=== PATIENT | male | born 1965 | race Caucasian/White ===

== ENCOUNTER 2017-02-11 09:45 | Emergency (ER) | payer BC, MEDICAID ==
[~2017-02-11] VITALS: Ht 188 cm; Wt 145.4 kg
[~2017-02-11 09:45] MED LIST: ALBU8HFA4 IH; ASPI81 PO; BUPR-93 PO; CARV25 PO; DSS100 PO; FURO20 PO; LISI-662 PO; LURA40 PO; METF500T4 PO; OMEP20 PO
[2017-02-11] MEDS ORDERED: INSNOV SQ (09:59)
[2017-02-11] MEDS ORDERED: AMLO-511 PO (09:59)
[2017-02-11] MEDS ORDERED: SERT20OR6 PO (09:59)
[2017-02-11] MEDS ORDERED: LISI-662 PO (09:59)
[2017-02-11] MEDS ORDERED: LOVA20 PO (09:59)
[2017-02-11 10:22] VITALS: BP 148/84
[2017-02-11] MEDS ORDERED: OxyCODONE HCL/ACETAMINOPHEN 5-325 MG TABLET PO ONE (11:00)
== END 2017-02-11 11:49 | disposition home or self-care (01) ==
LOC: EMS 09:46
DX: E11.40 Type 2 diabetes mellitus with diabetic neuropathy, unspecified (principal); E78.00 Pure hypercholesterolemia, unspecified; I10 Essential (primary) hypertension; F17.210 Nicotine dependence, cigarettes, uncomplicated; F14.90 Cocaine use, unspecified, uncomplicated; F19.90 Other psychoactive substance use, unspecified, uncomplicated; Z79.4 Long term (current) use of insulin; Z79.82 Long term (current) use of aspirin
CPT/HCPCS: 82962; 99283

== ENCOUNTER 2017-02-13 09:12 | Emergency (ER) | payer BC ==
[~2017-02-13] VITALS: Ht 188 cm; Wt 145.4 kg
[~2017-02-13 09:12] MED LIST changes: +AMLO-511 PO; +INSNOV SQ; +LOVA20 PO; +SERT20OR6 PO
[2017-02-13] MEDS ORDERED: GABA-529 PO (09:32)
[2017-02-13 09:37] LABS: GLUCOSE,POINT OF CARE 109 MG/DL (70-110)
[2017-02-13] MEDS ORDERED: HYDROCODONE/ACETAMINOPHEN 10-325 MG TABLET PO ONE (11:00)
[2017-02-13] MEDS ORDERED: CloNIDine HCL 0.1 MG TABLET PO ONE (12:00)
[2017-02-13 12:32] VITALS: BP 152/89
== END 2017-02-13 12:48 | disposition home or self-care (01) ==
LOC: EMS 09:13
DX: S73.101A Unspecified sprain of right hip, initial encounter (principal); M79.661 Pain in right lower leg; M79.662 Pain in left lower leg; E11.9 Type 2 diabetes mellitus without complications; I10 Essential (primary) hypertension; E78.00 Pure hypercholesterolemia, unspecified; E03.9 Hypothyroidism, unspecified; F17.210 Nicotine dependence, cigarettes, uncomplicated; F14.90 Cocaine use, unspecified, uncomplicated; F15.90 Other stimulant use, unspecified, uncomplicated; Z79.4 Long term (current) use of insulin; X58.XXXA Exposure to other specified factors, initial encounter; Y93.89 Activity, other specified; Y92.89 Other specified places as the place of occurrence of the external cause; Y99.8 Other external cause status
CPT/HCPCS: 82962; 99283

== ENCOUNTER 2017-02-19 02:19 | Inpatient (IN) | payer BC, MEDICAID ==
[~2017-02-19] VITALS: Ht 188 cm; Wt 146.1 kg
[~2017-02-19 02:19] MED LIST changes: -BUPR-93 PO; -CARV25 PO; -DSS100 PO; +GABA-529 PO; -LURA40 PO; -OMEP20 PO; +SERT20OR5 PO; -SERT20OR6 PO
[2017-02-19 09:15] VITALS: BP 155/97
[2017-02-19] MEDS ORDERED: ZOLPIDEM TARTRATE 10 MG TABLET PO PRN (09:15)
[2017-02-19] MEDS ORDERED: HALOPERIDOL 5 MG TABLET PO PRN (09:15)
[2017-02-19 10:28] VITALS: BP 126/78
[2017-02-19 10:36] LABS: GLUCOSE,POINT OF CARE 169 MG/DL (70-110)
[2017-02-19] MEDS ORDERED: PNEUMOCOCCAL VACCINE POLYVALENT 0.5 ML VIAL [PPSV23] IM ONE (10:45)
[2017-02-19] MEDS ORDERED: INFLUENZA VIRUS VACCINE QVS 2016-17 (3YR+)/PF 60 MCG/0.5 ML SYRINGE IM ONE (10:45)
[2017-02-19] MEDS: LORazepam 2 MG TABLET PO PRN ×2 (11:51→18:35)
[2017-02-19] MEDS ORDERED: SERT50TA12 PO (14:04)
[2017-02-19] MEDS ORDERED: GLUCAGON,HUMAN RECOMBINANT 1 MG VIAL IM PRN (14:15)
[2017-02-19 16:13] VITALS: BP 142/85
[2017-02-19] MEDS: MetFORMIN HCL 500 MG TABLET PO SCH (17:17)
[2017-02-20] MEDS: ALBUTEROL SULFATE HFA 90 MCG/PUFF 8 GM INHALER IH PRN (01:51)
[2017-02-20 05:00] VITALS: BP 157/93
[2017-02-20] MEDS: LORazepam 2 MG TABLET PO PRN ×2 (05:02→08:44)
[2017-02-20 06:07] LABS: GLUCOSE,POINT OF CARE 108 MG/DL (70-110)
[2017-02-20 06:07] LABS: GLUCOSE,POINT OF CARE 114 MG/DL (70-110)
[2017-02-20 06:07] LABS: GLUCOSE,POINT OF CARE 114 MG/DL (70-110)
[2017-02-20 06:07] LABS: GLUCOSE,POINT OF CARE 106 MG/DL (70-110)
[2017-02-20] MEDS: MetFORMIN HCL 500 MG TABLET PO SCH ×2 (06:41→16:32)
[2017-02-20] MEDS: FUROSEMIDE 20 MG TABLET PO SCH (08:01)
[2017-02-20] MEDS: LISINOPRIL 20 MG TABLET PO SCH (08:01)
[2017-02-20] MEDS: SERTRALINE HCL 100 MG TABLET PO SCH (08:01)
[2017-02-20] MEDS: NICOTINE 21 MG/24 HOUR PATCH TD SCH (08:01)
[2017-02-20] MEDS: AmLODIPine BESYLATE 5 MG TABLET PO SCH (08:02)
[2017-02-20] MEDS: ASPIRIN 81 MG EC TABLET PO SCH (08:02)
[2017-02-20 08:44] VITALS: BP 144/76
[2017-02-20] MEDS ORDERED: MAGNESIUM HYDROXIDE SUSPENSION 30 ML UDCUP PO PRN (09:00)
[2017-02-20] MEDS ORDERED: NICOTINE 21 MG/24 HOUR PATCH TD SCH (09:00)
[2017-02-20] MEDS: DIAZEPAM 5 MG TABLET PO PRN ×2 (11:04→16:33)
[2017-02-20 11:33] LABS: GLUCOSE,POINT OF CARE 99 MG/DL (70-110)
[2017-02-20 14:16] LABS: GLUCOSE,POINT OF CARE 167 MG/DL (70-110)
[2017-02-20 16:00] VITALS: BP 145/89
[2017-02-20] MEDS: TRIAMCINOLONE 0.1% 15 GM OINTMENT TP SCH ×2 (16:32→16:38)
[2017-02-20] MEDS: LOVASTATIN 20 MG TABLET PO SCH (16:32)
[2017-02-20] MEDS: INSULIN ASPART 100 UNITS/ML SQ PRN (16:54)
[2017-02-20] MEDS: IBUPROFEN 600 MG TABLET PO PRN (17:17)
[2017-02-20 17:22] LABS: GLUCOSE,POINT OF CARE 166 MG/DL (70-110)
[2017-02-20] MEDS: FLUTICASONE PROPIONATE 50 MCG/SPRAY 16 GM NASAL SPRAY NASAL PRN (20:35)
[2017-02-20] MEDS: DIAZEPAM 10 MG TABLET PO PRN (20:39)
[2017-02-20 20:42] LABS: GLUCOSE,POINT OF CARE 74 MG/DL (70-110)
[2017-02-21 00:17] LABS: GLUCOSE,POINT OF CARE 81 MG/DL (70-110)
[2017-02-21 00:40] VITALS: BP 171/79
[2017-02-21] MEDS: DIAZEPAM 5 MG TABLET PO PRN ×3 (00:41→16:11)
[2017-02-21] MEDS: FLUTICASONE PROPIONATE 50 MCG/SPRAY 16 GM NASAL SPRAY NASAL PRN (02:06)
[2017-02-21] MEDS: ALBUTEROL SULFATE HFA 90 MCG/PUFF 8 GM INHALER IH PRN (02:09)
[2017-02-21 02:45] VITALS: BP 167/110
[2017-02-21 03:35] VITALS: BP 170/127
[2017-02-21] MEDS: CloNIDine HCL 0.1 MG TABLET PO PRN (03:41)
[2017-02-21 04:45] VITALS: BP 175/120
[2017-02-21] MEDS: MetFORMIN HCL 500 MG TABLET PO SCH ×2 (06:37→16:12)
[2017-02-21 09:49] VITALS: BP 150/96
[2017-02-21] MEDS: NICOTINE 21 MG/24 HOUR PATCH TD SCH (09:51)
[2017-02-21] MEDS: ASPIRIN 81 MG EC TABLET PO SCH (09:51)
[2017-02-21] MEDS: SERTRALINE HCL 100 MG TABLET PO SCH (09:51)
[2017-02-21] MEDS: AmLODIPine BESYLATE 5 MG TABLET PO SCH (09:51)
[2017-02-21] MEDS: FUROSEMIDE 20 MG TABLET PO SCH (09:53)
[2017-02-21] MEDS: LISINOPRIL 20 MG TABLET PO SCH (09:53)
[2017-02-21] MEDS: TRIAMCINOLONE 0.1% 15 GM OINTMENT TP SCH ×2 (09:56→16:12)
[2017-02-21] MEDS: GuaiFENesin/D-METHORPHAN/PHENYLEPH 5 ML LIQUID ORAL.SYG PO PRN ×3 (10:34→23:18)
[2017-02-21 11:22] LABS: GLUCOSE,POINT OF CARE 121 MG/DL (70-110)
[2017-02-21] MEDS ORDERED: GuaiFENesin/D-METHORPHAN/PHENYLEPH 5 ML LIQUID ORAL.SYG PO SCH (12:00)
[2017-02-21 16:00] VITALS: BP 136/88
[2017-02-21] MEDS: LOVASTATIN 20 MG TABLET PO SCH (16:12)
[2017-02-21] MEDS: DIAZEPAM 10 MG TABLET PO PRN (20:17)
[2017-02-21 20:22] LABS: GLUCOSE,POINT OF CARE 128 MG/DL (70-110)
[2017-02-21 20:22] LABS: GLUCOSE,POINT OF CARE 134 MG/DL (70-110)
[2017-02-22 01:42] VITALS: BP 174/101
[2017-02-22] MEDS: DIAZEPAM 5 MG TABLET PO PRN ×3 (01:44→17:18)
[2017-02-22] MEDS: FLUTICASONE PROPIONATE 50 MCG/SPRAY 16 GM NASAL SPRAY NASAL PRN ×2 (04:59→10:25)
[2017-02-22] MEDS: MetFORMIN HCL 500 MG TABLET PO SCH ×2 (06:17→16:30)
[2017-02-22 06:32] LABS: GLUCOSE,POINT OF CARE 97 MG/DL (70-110)
[2017-02-22 08:04] VITALS: BP 137/83
[2017-02-22 08:09] LABS: BASOPHILS % (AUTO) 0.5 % (0.0-2.0); EOSINOPHILS % (AUTO) 2.9 % (1.0-6.0); HEMATOCRIT 49.8 % (41-53); HEMOGLOBIN 15.9 g/dL (13.5-17.5); LYMPHOCYTES # (AUTO) 1.3 K/uL (1.0-4.8); LYMPHOCYTES % (AUTO) 16.1 % (22.0-44.0); MEAN CORPUSCULAR HEMOGLOBIN 28.4 pg (26.0-34.0); MEAN CORPUSCULAR HGB CONC 31.8 G/dL (31.0-37.0); MEAN CORPUSCULAR VOLUME 89 fL (80-100); MONOCYTES # (AUTO) 0.7 K/uL (0.1-1.0); MONOCYTES % (AUTO) 8.7 % (2.0-9.0); NEUTROPHILS # (AUTO) 5.9 K/uL (1.8-7.7); NEUTROPHILS % (AUTO) 71.8 % (40.0-70.0); PLATELET COUNT (AUTO) 244 K/uL (150-450); RED BLOOD CELL COUNT(AUTO) 5.58 MIL/uL (4.50-5.90); RED CELL DISTRIBUTION WIDTH 14.2 % (11.5-14.5); WHITE BLOOD COUNT (AUTO) 8.3 K/uL (4.5-11.0)
[2017-02-22 08:27] LABS: ALANINE AMINOTRANSFERASE 34 U/L (12-78); ALBUMIN 3.4 g/dL (3.4-5.0); ANION GAP 9 mmol/L (8-16); ASPARTATE AMINOTRANSFERASE 15 U/L (15-37); BILIRUBIN,TOTAL 0.3 mg/dL (0.1-1.0); CALCIUM, TOTAL 8.5 mg/dL (8.8-10.5); CARBON DIOXIDE 30 mmol/L (22-29); CHLORIDE 105 mmol/L (98-107); CHOL/HDL RATIO 2.4 (4.2-7.3); CREATININE 0.77 mg/dL (0.60-1.30); GLOMERULAR FILTR. RATE CALC > 60 mL/min (>60); PHOSPHORUS 3.9 mg/dL (2.5-4.9); POTASSIUM 4.6 mmol/L (3.5-5.1); SODIUM SERUM 144 mmol/L (136-145); THYROID STIMULATING HORMONE 2.55 uIU/mL (0.36-3.74); TOTAL PROTEIN, SERUM 6.9 g/dL (6.4-8.2); UREA NITROGEN, BLOOD 16 mg/dL (7-18)
[2017-02-22] MEDS: NICOTINE 21 MG/24 HOUR PATCH TD SCH (09:00)
[2017-02-22] MEDS: TRIAMCINOLONE 0.1% 15 GM OINTMENT TP SCH ×2 (09:11→16:35)
[2017-02-22] MEDS: AmLODIPine BESYLATE 5 MG TABLET PO SCH (09:12)
[2017-02-22] MEDS: SERTRALINE HCL 100 MG TABLET PO SCH (09:12)
[2017-02-22] MEDS: ASPIRIN 81 MG EC TABLET PO SCH (09:13)
[2017-02-22] MEDS: LISINOPRIL 20 MG TABLET PO SCH (09:13)
[2017-02-22] MEDS: FUROSEMIDE 20 MG TABLET PO SCH (09:13)
[2017-02-22] MEDS: IBUPROFEN 600 MG TABLET PO PRN (09:14)
[2017-02-22] MEDS: GuaiFENesin/D-METHORPHAN/PHENYLEPH 5 ML LIQUID ORAL.SYG PO PRN ×2 (10:26→18:38)
[2017-02-22 11:12] LABS: GLUCOSE,POINT OF CARE 101 MG/DL (70-110)
[2017-02-22] MEDS: LOVASTATIN 20 MG TABLET PO SCH (16:31)
[2017-02-22] MEDS: INSULIN ASPART 100 UNITS/ML SQ PRN (16:43)
[2017-02-22 16:47] LABS: GLUCOSE,POINT OF CARE 141 MG/DL (70-110)
[2017-02-22 20:54] VITALS: BP 136/86
[2017-02-22 21:02] LABS: GLUCOSE,POINT OF CARE 119 MG/DL (70-110)
[2017-02-23] MEDS: GuaiFENesin/D-METHORPHAN/PHENYLEPH 5 ML LIQUID ORAL.SYG PO PRN (00:46)
[2017-02-23] MEDS: DIAZEPAM 5 MG TABLET PO PRN ×2 (01:44→12:19)
[2017-02-23] MEDS: ACETAMINOPHEN 325 MG TABLET PO PRN ×2 (05:59→17:13)
[2017-02-23 06:27] LABS: GLUCOSE,POINT OF CARE 102 MG/DL (70-110)
[2017-02-23 06:48] VITALS: BP 158/102
[2017-02-23] MEDS: MetFORMIN HCL 500 MG TABLET PO SCH ×2 (06:59→17:03)
[2017-02-23 08:16] VITALS: BP 141/72
[2017-02-23] MEDS: AmLODIPine BESYLATE 5 MG TABLET PO SCH (08:25)
[2017-02-23] MEDS: ASPIRIN 81 MG EC TABLET PO SCH (08:25)
[2017-02-23] MEDS: SERTRALINE HCL 100 MG TABLET PO SCH (08:25)
[2017-02-23] MEDS: FUROSEMIDE 20 MG TABLET PO SCH (08:25)
[2017-02-23] MEDS: CHOLECALCIFEROL (VIT D3) 1,000 UNITS TABLET PO SCH (08:25)
[2017-02-23] MEDS: LISINOPRIL 20 MG TABLET PO SCH (08:25)
[2017-02-23] MEDS: NICOTINE 21 MG/24 HOUR PATCH TD SCH (08:26)
[2017-02-23] MEDS: TRIAMCINOLONE 0.1% 15 GM OINTMENT TP SCH ×2 (08:27→17:05)
[2017-02-23 11:12] LABS: GLUCOSE,POINT OF CARE 78 MG/DL (70-110)
[2017-02-23] MEDS: FLUTICASONE PROPIONATE 50 MCG/SPRAY 16 GM NASAL SPRAY NASAL PRN (12:19)
[2017-02-23 16:11] VITALS: BP 145/111
[2017-02-23] MEDS: CloNIDine HCL 0.1 MG TABLET PO PRN (16:11)
[2017-02-23 17:02] LABS: GLUCOSE,POINT OF CARE 123 MG/DL (70-110)
[2017-02-23] MEDS: LOVASTATIN 20 MG TABLET PO SCH (17:03)
[2017-02-23 17:13] VITALS: BP 112/62
[2017-02-23 21:07] LABS: GLUCOSE,POINT OF CARE 115 MG/DL (70-110)
[2017-02-24] MEDS: FLUTICASONE PROPIONATE 50 MCG/SPRAY 16 GM NASAL SPRAY NASAL PRN (00:26)
[2017-02-24] MEDS: DIAZEPAM 5 MG TABLET PO PRN ×3 (00:26→15:54)
[2017-02-24] MEDS: GuaiFENesin/D-METHORPHAN/PHENYLEPH 5 ML LIQUID ORAL.SYG PO PRN ×2 (00:26→10:22)
[2017-02-24 06:18] LABS: GLUCOSE,POINT OF CARE 96 MG/DL (70-110)
[2017-02-24] MEDS: MetFORMIN HCL 500 MG TABLET PO SCH ×2 (06:38→17:09)
[2017-02-24 06:41] VITALS: BP 144/92
[2017-02-24 08:43] VITALS: BP 125/67
[2017-02-24] MEDS: CHOLECALCIFEROL (VIT D3) 1,000 UNITS TABLET PO SCH (09:00)
[2017-02-24] MEDS: FUROSEMIDE 20 MG TABLET PO SCH (09:00)
[2017-02-24] MEDS: SERTRALINE HCL 100 MG TABLET PO SCH (09:01)
[2017-02-24] MEDS: AmLODIPine BESYLATE 5 MG TABLET PO SCH (09:01)
[2017-02-24] MEDS: NICOTINE 21 MG/24 HOUR PATCH TD SCH (09:01)
[2017-02-24] MEDS: LISINOPRIL 20 MG TABLET PO SCH (09:01)
[2017-02-24] MEDS: ASPIRIN 81 MG EC TABLET PO SCH (09:02)
[2017-02-24] MEDS: TRIAMCINOLONE 0.1% 15 GM OINTMENT TP SCH ×2 (09:03→17:10)
[2017-02-24 09:34] VITALS: BP 127/73
[2017-02-24 10:22] VITALS: BP 120/70
[2017-02-24] MEDS: IBUPROFEN 600 MG TABLET PO PRN (10:22)
[2017-02-24 11:02] LABS: GLUCOSE,POINT OF CARE 131 MG/DL (70-110)
[2017-02-24 16:05] VITALS: BP 138/90
[2017-02-24] MEDS: ACETAMINOPHEN 325 MG TABLET PO PRN (16:05)
[2017-02-24 16:42] LABS: GLUCOSE,POINT OF CARE 112 MG/DL (70-110)
[2017-02-24] MEDS: LOVASTATIN 20 MG TABLET PO SCH (17:09)
[2017-02-24 20:57] LABS: GLUCOSE,POINT OF CARE 110 MG/DL (70-110)
[2017-02-25 00:58] VITALS: BP 131/92
[2017-02-25] MEDS: DIAZEPAM 5 MG TABLET PO PRN ×3 (01:05→18:44)
[2017-02-25] MEDS: FLUTICASONE PROPIONATE 50 MCG/SPRAY 16 GM NASAL SPRAY NASAL PRN (01:06)
[2017-02-25] MEDS: GuaiFENesin/D-METHORPHAN/PHENYLEPH 5 ML LIQUID ORAL.SYG PO PRN ×2 (01:06→16:47)
[2017-02-25 05:36] LABS: GLUCOSE,POINT OF CARE 83 MG/DL (70-110)
[2017-02-25] MEDS: MetFORMIN HCL 500 MG TABLET PO SCH ×2 (06:38→16:35)
[2017-02-25 08:04] VITALS: BP 130/84
[2017-02-25] MEDS: SERTRALINE HCL 100 MG TABLET PO SCH (08:40)
[2017-02-25] MEDS: AmLODIPine BESYLATE 5 MG TABLET PO SCH (08:40)
[2017-02-25] MEDS: CHOLECALCIFEROL (VIT D3) 1,000 UNITS TABLET PO SCH (08:40)
[2017-02-25] MEDS: NICOTINE 21 MG/24 HOUR PATCH TD SCH (08:40)
[2017-02-25] MEDS: LISINOPRIL 20 MG TABLET PO SCH (08:40)
[2017-02-25] MEDS: FUROSEMIDE 20 MG TABLET PO SCH (08:40)
[2017-02-25] MEDS: TRIAMCINOLONE 0.1% 15 GM OINTMENT TP SCH ×2 (08:41→16:41)
[2017-02-25] MEDS: ASPIRIN 81 MG EC TABLET PO SCH (08:41)
[2017-02-25 11:12] LABS: GLUCOSE,POINT OF CARE 86 MG/DL (70-110)
[2017-02-25 16:35] VITALS: BP 157/96
[2017-02-25] MEDS: LOVASTATIN 20 MG TABLET PO SCH (16:36)
[2017-02-25 17:07] LABS: GLUCOSE COMMENT 1 Received Meds; GLUCOSE,POINT OF CARE 93 MG/DL (70-110)
[2017-02-25 19:44] VITALS: BP 139/74
[2017-02-25] MEDS: IBUPROFEN 600 MG TABLET PO PRN (19:48)
[2017-02-25 20:11] LABS: GLUCOSE,POINT OF CARE 96 MG/DL (70-110)
[2017-02-26 06:00] VITALS: BP 135/95
[2017-02-26] MEDS: DIAZEPAM 5 MG TABLET PO PRN (06:13)
[2017-02-26] MEDS: GuaiFENesin/D-METHORPHAN/PHENYLEPH 5 ML LIQUID ORAL.SYG PO PRN (06:13)
[2017-02-26] MEDS: MetFORMIN HCL 500 MG TABLET PO SCH (07:08)
[2017-02-26 07:13] LABS: GLUCOSE,POINT OF CARE 102 MG/DL (70-110)
[2017-02-26 08:04] VITALS: BP 137/80
[2017-02-26] MEDS: AmLODIPine BESYLATE 5 MG TABLET PO SCH (08:49)
[2017-02-26] MEDS: SERTRALINE HCL 100 MG TABLET PO SCH (08:49)
[2017-02-26] MEDS: FUROSEMIDE 20 MG TABLET PO SCH (08:49)
[2017-02-26] MEDS: CHOLECALCIFEROL (VIT D3) 1,000 UNITS TABLET PO SCH (08:49)
[2017-02-26] MEDS: NICOTINE 21 MG/24 HOUR PATCH TD SCH (08:49)
[2017-02-26] MEDS: TRIAMCINOLONE 0.1% 15 GM OINTMENT TP SCH (08:49)
[2017-02-26] MEDS: ASPIRIN 81 MG EC TABLET PO SCH (08:49)
[2017-02-26] MEDS: LISINOPRIL 20 MG TABLET PO SCH (08:49)
[2017-02-26 10:52] LABS: GLUCOSE,POINT OF CARE 98 MG/DL (70-110)
[2017-02-26] MEDS ORDERED: VITAD1000 PO (15:30)
== END 2017-02-26 15:20 | disposition home or self-care (01) | DRG 751 ==
LOC: B2S 09:04 → EDSTATUS 09:27
DX: F33.2 Major depressive disorder, recurrent severe without psychotic features (principal); I11.0 Hypertensive heart disease with heart failure; I50.9 Heart failure, unspecified; R45.851 Suicidal ideations; E11.65 Type 2 diabetes mellitus with hyperglycemia; E66.01 Morbid (severe) obesity due to excess calories; K21.9 Gastro-esophageal reflux disease without esophagitis; J44.9 Chronic obstructive pulmonary disease, unspecified; I87.2 Venous insufficiency (chronic) (peripheral); Z53.29 Procedure and treatment not carried out because of patient's decision for other reasons; M19.90 Unspecified osteoarthritis, unspecified site; Z83.3 Family history of diabetes mellitus; Z82.49 Family history of ischemic heart disease and other diseases of the circulatory system; Z68.41 Body mass index [BMI] 40.0-44.9, adult; Z59.0 Homelessness; Z79.82 Long term (current) use of aspirin; Z79.4 Long term (current) use of insulin; Z79.899 Other long term (current) drug therapy; Z91.5 Personal history of self-harm; Z28.21 Immunization not carried out because of patient refusal
CPT/HCPCS: 82306; 82962; 83735; 84100; 84443; 87081; J3535

== ENCOUNTER 2017-03-26 19:38 | Inpatient (IN) | payer MEDICAID ==
[~2017-03-26] VITALS: Ht 188 cm; Wt 141.3 kg
[~2017-03-26 19:38] MED LIST changes: -GABA-529 PO; -INSNOV SQ; -SERT20OR5 PO; +SERT50TA12 PO; +VITAD1000 PO
[2017-03-26 21:14] VITALS: BP 134/76
[2017-03-26] MEDS ORDERED: LORazepam 2 MG TABLET PO PRN (21:30)
[2017-03-26] MEDS ORDERED: HALOPERIDOL 5 MG TABLET PO PRN (21:30)
[2017-03-26] MEDS ORDERED: PNEUMOCOCCAL VACCINE POLYVALENT 0.5 ML VIAL [PPSV23] IM ONE (22:00)
[2017-03-26 22:06] VITALS: BP 128/80
[2017-03-26 22:42] LABS: GLUCOSE,POINT OF CARE 144 MG/DL (70-110)
[2017-03-27 01:53] VITALS: BP 125/73
[2017-03-27 01:55] VITALS: BP 125/73
[2017-03-27 06:33] VITALS: BP 140/80
[2017-03-27 06:57] LABS: GLUCOSE,POINT OF CARE 125 MG/DL (70-110)
[2017-03-27 07:41] LABS: BASOPHILS % (AUTO) 0.7 % (0.0-2.0); HEMATOCRIT 44.4 % (41-53); HEMOGLOBIN 14.2 g/dL (13.5-17.5); LYMPHOCYTES # (AUTO) 1.5 K/uL (1.0-4.8); LYMPHOCYTES % (AUTO) 34.7 % (22.0-44.0); MEAN CORPUSCULAR HEMOGLOBIN 28.9 pg (26.0-34.0); MEAN CORPUSCULAR HGB CONC 32.1 G/dL (31.0-37.0); MEAN CORPUSCULAR VOLUME 90 fL (80-100); MONOCYTES # (AUTO) 0.4 K/uL (0.1-1.0); MONOCYTES % (AUTO) 9.1 % (2.0-9.0); NEUTROPHILS # (AUTO) 2.2 K/uL (1.8-7.7); NEUTROPHILS % (AUTO) 50.5 % (40.0-70.0); PLATELET COUNT (AUTO) 253 K/uL (150-450); RED BLOOD CELL COUNT(AUTO) 4.94 MIL/uL (4.50-5.90); RED CELL DISTRIBUTION WIDTH 13.8 % (11.5-14.5); WHITE BLOOD COUNT (AUTO) 4.3 K/uL (4.5-11.0)
[2017-03-27] MEDS ORDERED: CloNIDine HCL 0.1 MG TABLET PO PRN (07:45)
[2017-03-27] MEDS ORDERED: GLUCAGON,HUMAN RECOMBINANT 1 MG VIAL IM PRN (07:45)
[2017-03-27] MEDS ORDERED: ACETAMINOPHEN 325 MG TABLET PO PRN (07:45)
[2017-03-27] MEDS ORDERED: PETROLATUM,WHITE 71 GM JELLY TP PRN (07:45)
[2017-03-27] MEDS ORDERED: MAG HYDROX/AL HYDROX/SIMETH ES 30 ML SUSPENSION UDCUP PO PRN (07:45)
[2017-03-27] MEDS ORDERED: TraMADol HCL 50 MG TABLET PO PRN (07:45)
[2017-03-27] MEDS ORDERED: LOPERAMIDE HCL 2 MG CAPSULE PO PRN (07:45)
[2017-03-27] MEDS ORDERED: ONDANSETRON HCL 4 MG TABLET PO PRN (07:45)
[2017-03-27] MEDS ORDERED: ALBUTEROL SULFATE HFA 90 MCG/PUFF 8 GM INHALER IH PRN (07:45)
[2017-03-27] MEDS ORDERED: BENZOCAINE/MENTHOL LOZENGE MM PRN (07:45)
[2017-03-27] MEDS ORDERED: MAGNESIUM HYDROXIDE SUSPENSION 30 ML UDCUP PO PRN (07:45)
[2017-03-27] MEDS ORDERED: BACITRACIN 28.4 GM OINTMENT TP PRN (07:45)
[2017-03-27] MEDS ORDERED: IBUPROFEN 600 MG TABLET PO PRN (07:45)
[2017-03-27 08:00] VITALS: BP 128/65
[2017-03-27] MEDS: MAGNESIUM SULFATE 454 GM BOX TP SCH (09:00)
[2017-03-27] MEDS: TERBINAFINE HCL 1% 30 GM CREAM TP SCH ×2 (09:00→17:04)
[2017-03-27] MEDS: AmLODIPine BESYLATE 5 MG TABLET PO SCH (09:02)
[2017-03-27] MEDS: DOCUSATE SODIUM 250 MG CAPSULE PO SCH ×2 (09:02→16:58)
[2017-03-27] MEDS: GABAPENTIN 300 MG CAPSULE PO SCH ×3 (09:02→16:58)
[2017-03-27] MEDS: FUROSEMIDE 20 MG TABLET PO SCH (09:03)
[2017-03-27] MEDS: LISINOPRIL 20 MG TABLET PO SCH (09:03)
[2017-03-27] MEDS: ASPIRIN 81 MG CHEWABLE TABLET PO SCH (09:03)
[2017-03-27] MEDS: CHOLECALCIFEROL (VIT D3) 1,000 UNITS TABLET PO SCH (09:03)
[2017-03-27] MEDS: SERTRALINE HCL 100 MG TABLET PO SCH (09:03)
[2017-03-27] MEDS: OMEPRAZOLE 20 MG CAPSULE PO SCH (09:03)
[2017-03-27 10:34] LABS: ALANINE AMINOTRANSFERASE 35 U/L (12-78); ALBUMIN 2.9 g/dL (3.4-5.0); ANION GAP 10 mmol/L (8-16); ASPARTATE AMINOTRANSFERASE 24 U/L (15-37); BILIRUBIN,TOTAL 0.2 mg/dL (0.1-1.0); CALCIUM, TOTAL 8.7 mg/dL (8.8-10.5); CARBON DIOXIDE 28 mmol/L (22-29); CHLORIDE 106 mmol/L (98-107); CREATININE 0.88 mg/dL (0.60-1.30); GLOMERULAR FILTR. RATE CALC > 60 mL/min (>60); POTASSIUM 4.6 mmol/L (3.5-5.1); SODIUM SERUM 144 mmol/L (136-145); TOTAL PROTEIN, SERUM 5.8 g/dL (6.4-8.2); UREA NITROGEN, BLOOD 18 mg/dL (7-18)
[2017-03-27 11:47] LABS: GLUCOSE,POINT OF CARE 122 MG/DL (70-110)
[2017-03-27] MEDS: NICOTINE 21 MG/24 HOUR PATCH TD SCH (12:08)
[2017-03-27 16:00] VITALS: BP 134/83
[2017-03-27] MEDS: MetFORMIN HCL 500 MG TABLET PO SCH (16:58)
[2017-03-27] MEDS: DIAZEPAM 5 MG TABLET PO PRN (17:06)
[2017-03-27 17:32] LABS: GLUCOSE,POINT OF CARE 112 MG/DL (70-110)
[2017-03-28 00:33] VITALS: BP 134/93
[2017-03-28] MEDS: DIAZEPAM 5 MG TABLET PO PRN ×3 (03:28→17:21)
[2017-03-28 06:12] LABS: GLUCOSE,POINT OF CARE 93 MG/DL (70-110)
[2017-03-28] MEDS: MetFORMIN HCL 500 MG TABLET PO SCH ×2 (06:42→16:45)
[2017-03-28 08:15] VITALS: BP 139/72
[2017-03-28] MEDS: MAGNESIUM SULFATE 454 GM BOX TP SCH (09:00)
[2017-03-28] MEDS: ASPIRIN 81 MG CHEWABLE TABLET PO SCH (09:05)
[2017-03-28] MEDS: CHOLECALCIFEROL (VIT D3) 1,000 UNITS TABLET PO SCH (09:05)
[2017-03-28] MEDS: OMEPRAZOLE 20 MG CAPSULE PO SCH (09:05)
[2017-03-28] MEDS: LISINOPRIL 20 MG TABLET PO SCH (09:05)
[2017-03-28] MEDS: DOCUSATE SODIUM 250 MG CAPSULE PO SCH ×2 (09:05→16:45)
[2017-03-28] MEDS: FUROSEMIDE 20 MG TABLET PO SCH (09:05)
[2017-03-28] MEDS: SERTRALINE HCL 100 MG TABLET PO SCH (09:05)
[2017-03-28] MEDS: AmLODIPine BESYLATE 5 MG TABLET PO SCH (09:05)
[2017-03-28] MEDS: GABAPENTIN 300 MG CAPSULE PO SCH ×3 (09:05→16:46)
[2017-03-28] MEDS: NICOTINE 21 MG/24 HOUR PATCH TD SCH (09:12)
[2017-03-28] MEDS: TERBINAFINE HCL 1% 30 GM CREAM TP SCH ×2 (09:13→16:46)
[2017-03-28 16:12] LABS: GLUCOSE COMMENT 1 Received Meds; GLUCOSE,POINT OF CARE 102 MG/DL (70-110)
[2017-03-28 16:12] LABS: GLUCOSE,POINT OF CARE 111 MG/DL (70-110)
[2017-03-28 16:18] VITALS: BP 136/87
[2017-03-28 20:17] LABS: GLUCOSE,POINT OF CARE 129 MG/DL (70-110)
[2017-03-29 00:39] VITALS: BP 137/73
[2017-03-29 06:13] LABS: GLUCOSE,POINT OF CARE 106 MG/DL (70-110)
[2017-03-29] MEDS: MetFORMIN HCL 500 MG TABLET PO SCH ×2 (07:03→16:08)
[2017-03-29 08:13] VITALS: BP 162/94
[2017-03-29] MEDS: DOCUSATE SODIUM 250 MG CAPSULE PO SCH ×2 (09:24→16:08)
[2017-03-29] MEDS: NICOTINE 21 MG/24 HOUR PATCH TD SCH (09:24)
[2017-03-29] MEDS: OMEPRAZOLE 20 MG CAPSULE PO SCH (09:24)
[2017-03-29] MEDS: SERTRALINE HCL 100 MG TABLET PO SCH (09:24)
[2017-03-29] MEDS: ASPIRIN 81 MG CHEWABLE TABLET PO SCH (09:25)
[2017-03-29] MEDS: CHOLECALCIFEROL (VIT D3) 1,000 UNITS TABLET PO SCH (09:25)
[2017-03-29] MEDS: LISINOPRIL 20 MG TABLET PO SCH (09:25)
[2017-03-29] MEDS: GABAPENTIN 300 MG CAPSULE PO SCH ×3 (09:25→16:08)
[2017-03-29] MEDS: AmLODIPine BESYLATE 5 MG TABLET PO SCH (09:25)
[2017-03-29] MEDS: FUROSEMIDE 20 MG TABLET PO SCH (09:26)
[2017-03-29] MEDS: TERBINAFINE HCL 1% 30 GM CREAM TP SCH ×2 (09:27→16:08)
[2017-03-29] MEDS: MAGNESIUM SULFATE 454 GM BOX TP SCH (09:27)
[2017-03-29] MEDS: DIAZEPAM 5 MG TABLET PO PRN ×2 (09:31→18:37)
[2017-03-29 12:17] LABS: GLUCOSE,POINT OF CARE 70 MG/DL (70-110)
[2017-03-29 15:17] LABS: GLUCOSE,POINT OF CARE 196 MG/DL (70-110)
[2017-03-29 16:12] LABS: GLUCOSE,POINT OF CARE 130 MG/DL (70-110)
[2017-03-29 16:15] VITALS: BP 144/81
[2017-03-29] MEDS: DIAZEPAM 10 MG TABLET PO PRN (21:23)
[2017-03-30 00:35] VITALS: BP 148/89
[2017-03-30 01:37] LABS: GLUCOSE,POINT OF CARE 79 MG/DL (70-110)
[2017-03-30] MEDS: MetFORMIN HCL 500 MG TABLET PO SCH ×2 (06:46→17:18)
[2017-03-30] MEDS: CHOLECALCIFEROL (VIT D3) 1,000 UNITS TABLET PO SCH (09:01)
[2017-03-30] MEDS: NICOTINE 21 MG/24 HOUR PATCH TD SCH (09:01)
[2017-03-30] MEDS: AmLODIPine BESYLATE 5 MG TABLET PO SCH (09:01)
[2017-03-30] MEDS: GABAPENTIN 300 MG CAPSULE PO SCH ×3 (09:01→16:03)
[2017-03-30] MEDS: ASPIRIN 81 MG CHEWABLE TABLET PO SCH (09:01)
[2017-03-30] MEDS: FUROSEMIDE 20 MG TABLET PO SCH ×2 (09:01→17:33)
[2017-03-30] MEDS: LISINOPRIL 20 MG TABLET PO SCH (09:01)
[2017-03-30] MEDS: DOCUSATE SODIUM 250 MG CAPSULE PO SCH ×2 (09:01→16:03)
[2017-03-30] MEDS: SERTRALINE HCL 100 MG TABLET PO SCH (09:01)
[2017-03-30] MEDS: OMEPRAZOLE 20 MG CAPSULE PO SCH (09:01)
[2017-03-30] MEDS: TERBINAFINE HCL 1% 30 GM CREAM TP SCH ×2 (09:02→17:18)
[2017-03-30] MEDS: DIAZEPAM 5 MG TABLET PO PRN ×2 (09:04→17:26)
[2017-03-30] MEDS: MAGNESIUM SULFATE 454 GM BOX TP SCH (09:06)
[2017-03-30 09:16] VITALS: BP 149/85
[2017-03-30 11:17] LABS: GLUCOSE,POINT OF CARE 84 MG/DL (70-110)
[2017-03-30 11:17] LABS: GLUCOSE,POINT OF CARE 97 MG/DL (70-110)
[2017-03-30 15:52] LABS: GLUCOSE,POINT OF CARE 129 MG/DL (70-110)
[2017-03-30 16:42] VITALS: BP 166/99
[2017-03-30] MEDS ORDERED: FUROSEMIDE 40 MG TABLET PO SCH (17:00)
[2017-03-30 19:23] VITALS: BP 149/88
[2017-03-30] MEDS: DIAZEPAM 10 MG TABLET PO PRN (21:15)
[2017-03-30 21:22] LABS: GLUCOSE,POINT OF CARE 126 MG/DL (70-110)
[2017-03-31 01:42] VITALS: BP 155/98
[2017-03-31 06:25] VITALS: BP 139/96
[2017-03-31] MEDS: DIAZEPAM 5 MG TABLET PO PRN ×2 (06:28→15:47)
[2017-03-31] MEDS: MetFORMIN HCL 500 MG TABLET PO SCH ×2 (06:41→16:47)
[2017-03-31 07:06] LABS: GLUCOSE,POINT OF CARE 87 MG/DL (70-110)
[2017-03-31 08:33] VITALS: BP 140/82
[2017-03-31] MEDS: ASPIRIN 81 MG CHEWABLE TABLET PO SCH (09:53)
[2017-03-31] MEDS: DOCUSATE SODIUM 250 MG CAPSULE PO SCH ×2 (09:54→16:47)
[2017-03-31] MEDS: FUROSEMIDE 20 MG TABLET PO SCH ×2 (09:54→16:46)
[2017-03-31] MEDS: AmLODIPine BESYLATE 5 MG TABLET PO SCH (09:54)
[2017-03-31] MEDS: GABAPENTIN 300 MG CAPSULE PO SCH ×3 (09:54→16:47)
[2017-03-31] MEDS: CHOLECALCIFEROL (VIT D3) 1,000 UNITS TABLET PO SCH (09:54)
[2017-03-31] MEDS: OMEPRAZOLE 20 MG CAPSULE PO SCH (09:54)
[2017-03-31] MEDS: NICOTINE 21 MG/24 HOUR PATCH TD SCH (09:54)
[2017-03-31] MEDS: LISINOPRIL 20 MG TABLET PO SCH (09:54)
[2017-03-31] MEDS: SERTRALINE HCL 100 MG TABLET PO SCH (09:54)
[2017-03-31] MEDS: MAGNESIUM SULFATE 454 GM BOX TP SCH (09:55)
[2017-03-31] MEDS: TERBINAFINE HCL 1% 30 GM CREAM TP SCH ×2 (09:55→16:47)
[2017-03-31 14:37] LABS: GLUCOSE,POINT OF CARE 89 MG/DL (70-110)
[2017-03-31 17:12] LABS: GLUCOSE,POINT OF CARE 116 MG/DL (70-110)
[2017-03-31 20:33] VITALS: BP 133/73
[2017-03-31 20:52] LABS: GLUCOSE,POINT OF CARE 101 MG/DL (70-110)
[2017-03-31] MEDS: DIAZEPAM 10 MG TABLET PO PRN (22:44)
[2017-04-01 00:07] VITALS: BP 140/79
[2017-04-01] MEDS: ZOLPIDEM TARTRATE 10 MG TABLET PO PRN (00:11)
[2017-04-01] MEDS: MetFORMIN HCL 500 MG TABLET PO SCH ×2 (06:59→16:32)
[2017-04-01 07:07] LABS: GLUCOSE,POINT OF CARE 89 MG/DL (70-110)
[2017-04-01 08:46] VITALS: BP 141/96
[2017-04-01] MEDS: DIAZEPAM 5 MG TABLET PO PRN (09:10)
[2017-04-01] MEDS: NICOTINE 21 MG/24 HOUR PATCH TD SCH (09:11)
[2017-04-01] MEDS: OMEPRAZOLE 20 MG CAPSULE PO SCH (09:11)
[2017-04-01] MEDS: LISINOPRIL 20 MG TABLET PO SCH (09:12)
[2017-04-01] MEDS: FUROSEMIDE 20 MG TABLET PO SCH ×2 (09:12→16:31)
[2017-04-01] MEDS: GABAPENTIN 300 MG CAPSULE PO SCH ×3 (09:12→16:31)
[2017-04-01] MEDS: AmLODIPine BESYLATE 5 MG TABLET PO SCH (09:12)
[2017-04-01] MEDS: DOCUSATE SODIUM 250 MG CAPSULE PO SCH ×2 (09:12→16:32)
[2017-04-01] MEDS: CHOLECALCIFEROL (VIT D3) 1,000 UNITS TABLET PO SCH (09:12)
[2017-04-01] MEDS: SERTRALINE HCL 100 MG TABLET PO SCH (09:12)
[2017-04-01] MEDS: ASPIRIN 81 MG CHEWABLE TABLET PO SCH (09:12)
[2017-04-01] MEDS: TERBINAFINE HCL 1% 30 GM CREAM TP SCH ×2 (09:13→16:31)
[2017-04-01 11:25] VITALS: BP 145/86
[2017-04-01 11:37] LABS: GLUCOSE COMMENT 1 Received Meds; GLUCOSE,POINT OF CARE 85 MG/DL (70-110)
[2017-04-01 16:12] VITALS: BP 117/69
[2017-04-01 17:26] LABS: GLUCOSE,POINT OF CARE 107 MG/DL (70-110)
[2017-04-01 20:37] LABS: GLUCOSE,POINT OF CARE 160 MG/DL (70-110)
[2017-04-01] MEDS: DIAZEPAM 10 MG TABLET PO PRN (20:55)
[2017-04-01] MEDS: INSULIN ASPART 100 UNITS/ML SQ PRN (21:49)
[2017-04-02 02:48] VITALS: BP 142/98
[2017-04-02] MEDS: DIAZEPAM 5 MG TABLET PO PRN ×2 (02:53→12:25)
[2017-04-02] MEDS: MetFORMIN HCL 500 MG TABLET PO SCH ×2 (06:51→17:33)
[2017-04-02 07:07] LABS: GLUCOSE,POINT OF CARE 78 MG/DL (70-110)
[2017-04-02 08:15] VITALS: BP 105/73
[2017-04-02] MEDS: DOCUSATE SODIUM 250 MG CAPSULE PO SCH ×2 (09:10→17:34)
[2017-04-02] MEDS: FUROSEMIDE 20 MG TABLET PO SCH ×2 (09:10→17:34)
[2017-04-02] MEDS: NICOTINE 21 MG/24 HOUR PATCH TD SCH (09:10)
[2017-04-02] MEDS: LISINOPRIL 20 MG TABLET PO SCH (09:10)
[2017-04-02] MEDS: ASPIRIN 81 MG CHEWABLE TABLET PO SCH (09:10)
[2017-04-02] MEDS: GABAPENTIN 300 MG CAPSULE PO SCH ×3 (09:10→17:34)
[2017-04-02] MEDS: SERTRALINE HCL 100 MG TABLET PO SCH (09:11)
[2017-04-02] MEDS: CHOLECALCIFEROL (VIT D3) 1,000 UNITS TABLET PO SCH (09:11)
[2017-04-02] MEDS: OMEPRAZOLE 20 MG CAPSULE PO SCH (09:11)
[2017-04-02] MEDS: AmLODIPine BESYLATE 5 MG TABLET PO SCH (09:30)
[2017-04-02] MEDS: TERBINAFINE HCL 1% 30 GM CREAM TP SCH ×2 (09:31→17:35)
[2017-04-02 14:02] LABS: GLUCOSE,POINT OF CARE 91 MG/DL (70-110)
[2017-04-02 16:00] VITALS: BP 132/76
[2017-04-02 18:57] LABS: GLUCOSE COMMENT 1 Received Meds; GLUCOSE,POINT OF CARE 111 MG/DL (70-110)
[2017-04-02] MEDS: DIAZEPAM 10 MG TABLET PO PRN (21:41)
[2017-04-02] MEDS: ZOLPIDEM TARTRATE 10 MG TABLET PO PRN (21:41)
[2017-04-02 21:57] LABS: GLUCOSE,POINT OF CARE 150 MG/DL (70-110)
[2017-04-03 03:52] VITALS: BP 132/86
[2017-04-03] MEDS: DIAZEPAM 5 MG TABLET PO PRN ×2 (04:24→12:31)
[2017-04-03 06:17] LABS: GLUCOSE,POINT OF CARE 134 MG/DL (70-110)
[2017-04-03] MEDS: MetFORMIN HCL 500 MG TABLET PO SCH ×2 (06:36→16:48)
[2017-04-03 08:38] VITALS: BP 122/66
[2017-04-03] MEDS: SERTRALINE HCL 100 MG TABLET PO SCH (09:35)
[2017-04-03] MEDS: CHOLECALCIFEROL (VIT D3) 1,000 UNITS TABLET PO SCH (09:35)
[2017-04-03] MEDS: GABAPENTIN 300 MG CAPSULE PO SCH ×3 (09:35→16:48)
[2017-04-03] MEDS: DOCUSATE SODIUM 250 MG CAPSULE PO SCH ×2 (09:35→16:48)
[2017-04-03] MEDS: NICOTINE 21 MG/24 HOUR PATCH TD SCH (09:35)
[2017-04-03] MEDS: LISINOPRIL 20 MG TABLET PO SCH (09:35)
[2017-04-03] MEDS: FUROSEMIDE 20 MG TABLET PO SCH ×2 (09:35→16:48)
[2017-04-03] MEDS: OMEPRAZOLE 20 MG CAPSULE PO SCH (09:36)
[2017-04-03] MEDS: AmLODIPine BESYLATE 5 MG TABLET PO SCH (09:36)
[2017-04-03] MEDS: ASPIRIN 81 MG CHEWABLE TABLET PO SCH (09:36)
[2017-04-03] MEDS: TERBINAFINE HCL 1% 30 GM CREAM TP SCH ×2 (09:36→16:48)
[2017-04-03 09:58] LABS: GLUCOSE,POINT OF CARE 131 MG/DL (70-110)
[2017-04-03 11:22] LABS: GLUCOSE,POINT OF CARE 133 MG/DL (70-110)
[2017-04-03 16:24] VITALS: BP 128/86
[2017-04-03 16:53] LABS: GLUCOSE,POINT OF CARE 112 MG/DL (70-110)
[2017-04-03] MEDS: DIAZEPAM 10 MG TABLET PO PRN (20:26)
[2017-04-03] MEDS: ZOLPIDEM TARTRATE 10 MG TABLET PO PRN (20:48)
[2017-04-04 00:14] VITALS: BP 128/67
[2017-04-04 06:42] LABS: GLUCOSE,POINT OF CARE 83 MG/DL (70-110)
[2017-04-04 07:15] VITALS: BP 139/89
[2017-04-04] MEDS: MetFORMIN HCL 500 MG TABLET PO SCH ×2 (07:31→16:27)
[2017-04-04] MEDS: DIAZEPAM 5 MG TABLET PO PRN ×2 (07:31→16:27)
[2017-04-04 08:29] VITALS: BP 138/72
[2017-04-04] MEDS: NICOTINE 21 MG/24 HOUR PATCH TD SCH (09:23)
[2017-04-04] MEDS: GABAPENTIN 300 MG CAPSULE PO SCH ×3 (09:23→16:27)
[2017-04-04] MEDS: LISINOPRIL 20 MG TABLET PO SCH (09:24)
[2017-04-04] MEDS: CHOLECALCIFEROL (VIT D3) 1,000 UNITS TABLET PO SCH (09:24)
[2017-04-04] MEDS: AmLODIPine BESYLATE 5 MG TABLET PO SCH (09:24)
[2017-04-04] MEDS: OMEPRAZOLE 20 MG CAPSULE PO SCH (09:24)
[2017-04-04] MEDS: TERBINAFINE HCL 1% 30 GM CREAM TP SCH ×2 (09:24→16:27)
[2017-04-04] MEDS: SERTRALINE HCL 100 MG TABLET PO SCH (09:24)
[2017-04-04] MEDS: ASPIRIN 81 MG CHEWABLE TABLET PO SCH (09:24)
[2017-04-04] MEDS: FUROSEMIDE 20 MG TABLET PO SCH ×2 (09:24→16:27)
[2017-04-04] MEDS: DOCUSATE SODIUM 250 MG CAPSULE PO SCH ×2 (09:24→16:26)
[2017-04-04 11:02] LABS: GLUCOSE,POINT OF CARE 133 MG/DL (70-110)
[2017-04-04 16:48] VITALS: BP 135/80
[2017-04-04] MEDS: DIAZEPAM 10 MG TABLET PO PRN (20:14)
[2017-04-04] MEDS: ZOLPIDEM TARTRATE 10 MG TABLET PO PRN (21:07)
[2017-04-04 21:38] LABS: GLUCOSE,POINT OF CARE 121 MG/DL (70-110)
[2017-04-05 02:01] VITALS: BP 130/87
[2017-04-05 03:46] VITALS: BP 146/90
[2017-04-05] MEDS: DIAZEPAM 5 MG TABLET PO PRN (03:51)
[2017-04-05] MEDS: MetFORMIN HCL 500 MG TABLET PO SCH (06:29)
[2017-04-05 06:42] LABS: GLUCOSE,POINT OF CARE 111 MG/DL (70-110)
[2017-04-05 08:15] VITALS: BP 141/79
[2017-04-05] MEDS ORDERED: GABA-531 PO (09:39)
[2017-04-05] MEDS ORDERED: DOCU250C91 PO (09:39)
[2017-04-05] MEDS: CHOLECALCIFEROL (VIT D3) 1,000 UNITS TABLET PO SCH (09:40)
[2017-04-05] MEDS: FUROSEMIDE 20 MG TABLET PO SCH (09:40)
[2017-04-05] MEDS: LISINOPRIL 20 MG TABLET PO SCH (09:40)
[2017-04-05] MEDS: SERTRALINE HCL 100 MG TABLET PO SCH (09:40)
[2017-04-05] MEDS: OMEPRAZOLE 20 MG CAPSULE PO SCH (09:40)
[2017-04-05] MEDS: AmLODIPine BESYLATE 5 MG TABLET PO SCH (09:40)
[2017-04-05] MEDS: DOCUSATE SODIUM 250 MG CAPSULE PO SCH (09:40)
[2017-04-05] MEDS: NICOTINE 21 MG/24 HOUR PATCH TD SCH (09:41)
[2017-04-05] MEDS: ASPIRIN 81 MG CHEWABLE TABLET PO SCH (09:41)
[2017-04-05] MEDS: GABAPENTIN 300 MG CAPSULE PO SCH ×2 (09:41→13:27)
[2017-04-05] MEDS: TERBINAFINE HCL 1% 30 GM CREAM TP SCH (09:41)
[2017-04-05 11:28] LABS: GLUCOSE,POINT OF CARE 178 MG/DL (70-110)
[2017-04-05] MEDS: INSULIN ASPART 100 UNITS/ML SQ PRN (11:32)
== END 2017-04-05 14:40 | disposition home or self-care (01) | DRG 751 ==
LOC: B2S 21:27 → EDSTATUS 21:33 → B2S 21:55
PROC: 3E0234Z Introduction of Serum, Toxoid and Vaccine into Muscle, Percutaneous Approach (ICD-10-PCS; principal; 2017-03-27)
DX: F33.2 Major depressive disorder, recurrent severe without psychotic features (principal); E11.40 Type 2 diabetes mellitus with diabetic neuropathy, unspecified; R45.851 Suicidal ideations; I11.0 Hypertensive heart disease with heart failure; I50.9 Heart failure, unspecified; B35.3 Tinea pedis; F17.200 Nicotine dependence, unspecified, uncomplicated; F15.90 Other stimulant use, unspecified, uncomplicated; E66.01 Morbid (severe) obesity due to excess calories; K21.9 Gastro-esophageal reflux disease without esophagitis; J44.9 Chronic obstructive pulmonary disease, unspecified; G89.29 Other chronic pain; M19.90 Unspecified osteoarthritis, unspecified site; E11.65 Type 2 diabetes mellitus with hyperglycemia; K59.00 Constipation, unspecified; G47.00 Insomnia, unspecified; I87.2 Venous insufficiency (chronic) (peripheral); Z71.6 Tobacco abuse counseling; Z79.82 Long term (current) use of aspirin; Z68.41 Body mass index [BMI] 40.0-44.9, adult; Z83.3 Family history of diabetes mellitus; Z82.49 Family history of ischemic heart disease and other diseases of the circulatory system; Z59.0 Homelessness; Z56.0 Unemployment, unspecified; Z79.899 Other long term (current) drug therapy; Z91.5 Personal history of self-harm; Z23 Encounter for immunization; Z71.51 Drug abuse counseling and surveillance of drug abuser
CPT/HCPCS: 82962; 87081; 90471

== ENCOUNTER 2017-04-28 03:44 | Inpatient (IN) | payer MEDICAID ==
[~2017-04-28] VITALS: Ht 188 cm; Wt 136.7 kg
[~2017-04-28 03:44] MED LIST changes: -ALBU8HFA4 IH; +DOCU250C91 PO; +GABA-531 PO; -LOVA20 PO
[2017-04-28] MEDS ORDERED: LORazepam 2 MG TABLET PO PRN (06:15)
[2017-04-28] MEDS ORDERED: HALOPERIDOL 5 MG TABLET PO PRN (06:15)
[2017-04-28 06:34] VITALS: BP 150/95
[2017-04-28 06:47] LABS: GLUCOSE,POINT OF CARE 127 MG/DL (70-110)
[2017-04-28] MEDS: NICOTINE 21 MG/24 HOUR PATCH TD SCH (08:41)
[2017-04-28] MEDS ORDERED: MAG HYDROX/AL HYDROX/SIMETH ES 30 ML SUSPENSION UDCUP PO PRN (08:45)
[2017-04-28] MEDS ORDERED: ONDANSETRON HCL 4 MG TABLET PO PRN (08:45)
[2017-04-28] MEDS ORDERED: BENZOCAINE/MENTHOL LOZENGE MM PRN (08:45)
[2017-04-28] MEDS ORDERED: PETROLATUM,WHITE 71 GM JELLY TP PRN (08:45)
[2017-04-28] MEDS ORDERED: BACITRACIN 28.4 GM OINTMENT TP PRN (08:45)
[2017-04-28] MEDS ORDERED: ALBUTEROL SULFATE HFA 90 MCG/PUFF 8 GM INHALER IH PRN (08:45)
[2017-04-28] MEDS ORDERED: MAGNESIUM HYDROXIDE SUSPENSION 30 ML UDCUP PO PRN (08:45)
[2017-04-28] MEDS ORDERED: ACETAMINOPHEN 325 MG TABLET PO PRN (08:45)
[2017-04-28] MEDS ORDERED: LOPERAMIDE HCL 2 MG CAPSULE PO PRN (08:45)
[2017-04-28 08:54] VITALS: BP 140/82
[2017-04-28] MEDS ORDERED: INSULIN ASPART 100 UNITS/ML SQ PRN (09:00)
[2017-04-28] MEDS ORDERED: LISINOPRIL 20 MG TABLET PO SCH (09:00)
[2017-04-28] MEDS ORDERED: GLUCAGON,HUMAN RECOMBINANT 1 MG VIAL IM PRN (09:00)
[2017-04-28] MEDS ORDERED: FUROSEMIDE 40 MG TABLET PO SCH (09:15)
[2017-04-28] MEDS: DOCUSATE SODIUM 250 MG CAPSULE PO SCH ×2 (09:35→16:42)
[2017-04-28] MEDS: FUROSEMIDE 20 MG TABLET PO SCH (09:35)
[2017-04-28] MEDS: GABAPENTIN 300 MG CAPSULE PO SCH ×3 (09:35→16:42)
[2017-04-28] MEDS: ASPIRIN 81 MG CHEWABLE TABLET PO SCH (09:35)
[2017-04-28] MEDS: CHOLECALCIFEROL (VIT D3) 1,000 UNITS TABLET PO SCH (09:35)
[2017-04-28] MEDS: DIAZEPAM 5 MG TABLET PO PRN ×2 (10:39→18:32)
[2017-04-28 11:11] LABS: GLUCOSE,POINT OF CARE 201 MG/DL (70-110)
[2017-04-28 16:29] VITALS: BP 156/95
[2017-04-28] MEDS: IBUPROFEN 600 MG TABLET PO PRN (16:41)
[2017-04-28] MEDS: MetFORMIN HCL 500 MG TABLET PO SCH (16:42)
[2017-04-28] MEDS: SERTRALINE HCL 100 MG TABLET PO SCH (16:42)
[2017-04-28 17:51] LABS: GLUCOSE,POINT OF CARE 109 MG/DL (70-110)
[2017-04-28 22:39] VITALS: BP 139/77
[2017-04-29 03:20] VITALS: BP 139/94
[2017-04-29] MEDS: DIAZEPAM 5 MG TABLET PO PRN ×3 (03:21→20:35)
[2017-04-29 06:27] LABS: GLUCOSE,POINT OF CARE 105 MG/DL (70-110)
[2017-04-29] MEDS: MetFORMIN HCL 500 MG TABLET PO SCH ×3 (06:50→17:00)
[2017-04-29] MEDS: LISINOPRIL 10 MG TABLET PO SCH (08:01)
[2017-04-29] MEDS: FUROSEMIDE 20 MG TABLET PO SCH (08:01)
[2017-04-29] MEDS: ASPIRIN 81 MG CHEWABLE TABLET PO SCH (08:01)
[2017-04-29] MEDS: SERTRALINE HCL 100 MG TABLET PO SCH (08:01)
[2017-04-29] MEDS: CHOLECALCIFEROL (VIT D3) 1,000 UNITS TABLET PO SCH (08:01)
[2017-04-29] MEDS: GABAPENTIN 300 MG CAPSULE PO SCH ×3 (08:01→16:16)
[2017-04-29] MEDS: DOCUSATE SODIUM 250 MG CAPSULE PO SCH ×2 (08:01→16:15)
[2017-04-29] MEDS: NICOTINE 21 MG/24 HOUR PATCH TD SCH (08:02)
[2017-04-29 08:18] VITALS: BP 151/98
[2017-04-29 08:24] LABS: BASOPHILS % (AUTO) 0.5 % (0.0-2.0); EOSINOPHILS % (AUTO) 4.5 % (1.0-6.0); HEMOGLOBIN 14.5 g/dL (13.5-17.5); LYMPHOCYTES # (AUTO) 1.6 K/uL (1.0-4.8); LYMPHOCYTES % (AUTO) 34.3 % (22.0-44.0); MEAN CORPUSCULAR HEMOGLOBIN 29.2 pg (26.0-34.0); MEAN CORPUSCULAR HGB CONC 33.1 G/dL (31.0-37.0); MEAN CORPUSCULAR VOLUME 88 fL (80-100); MONOCYTES # (AUTO) 0.4 K/uL (0.1-1.0); MONOCYTES % (AUTO) 7.8 % (2.0-9.0); NEUTROPHILS # (AUTO) 2.4 K/uL (1.8-7.7); NEUTROPHILS % (AUTO) 52.9 % (40.0-70.0); PLATELET COUNT (AUTO) 268 K/uL (150-450); RED BLOOD CELL COUNT(AUTO) 4.97 MIL/uL (4.50-5.90); RED CELL DISTRIBUTION WIDTH 13.6 % (11.5-14.5); WHITE BLOOD COUNT (AUTO) 4.5 K/uL (4.5-11.0)
[2017-04-29] MEDS ORDERED: NICOTINE 21 MG/24 HOUR PATCH TD SCH (09:00)
[2017-04-29 09:03] LABS: ALANINE AMINOTRANSFERASE 43 U/L (12-78); ANION GAP 6 mmol/L (8-16); ASPARTATE AMINOTRANSFERASE 21 U/L (15-37); BILIRUBIN,TOTAL 0.2 mg/dL (0.1-1.0); CALCIUM, TOTAL 8.7 mg/dL (8.8-10.5); CARBON DIOXIDE 29 mmol/L (22-29); CHLORIDE 105 mmol/L (98-107); CHOL/HDL RATIO 2.4 (4.2-7.3); CREATININE 0.77 mg/dL (0.60-1.30); GLOMERULAR FILTR. RATE CALC > 60 mL/min (>60); POTASSIUM 4.2 mmol/L (3.5-5.1); SODIUM SERUM 140 mmol/L (136-145); THYROID STIMULATING HORMONE 1.91 uIU/mL (0.36-3.74); TOTAL PROTEIN, SERUM 5.9 g/dL (6.4-8.2); UREA NITROGEN, BLOOD 15 mg/dL (7-18)
[2017-04-29 11:17] LABS: GLUCOSE,POINT OF CARE 91 MG/DL (70-110)
[2017-04-29 16:00] VITALS: BP 148/92
[2017-04-29] MEDS: IBUPROFEN 600 MG TABLET PO PRN (16:25)
[2017-04-29 17:23] LABS: GLUCOSE,POINT OF CARE 119 MG/DL (70-110)
[2017-04-29 17:25] VITALS: BP 138/77
[2017-04-29 21:51] VITALS: BP 139/89
[2017-04-30 03:40] VITALS: BP 155/88
[2017-04-30] MEDS: DIAZEPAM 5 MG TABLET PO PRN ×3 (03:49→21:26)
[2017-04-30 06:00] VITALS: BP 155/91
[2017-04-30 06:07] LABS: GLUCOSE,POINT OF CARE 89 MG/DL (70-110)
[2017-04-30] MEDS: MetFORMIN HCL 500 MG TABLET PO SCH ×2 (06:37→17:10)
[2017-04-30 08:24] VITALS: BP 139/77
[2017-04-30] MEDS: GABAPENTIN 300 MG CAPSULE PO SCH ×3 (08:40→17:10)
[2017-04-30] MEDS: NICOTINE 21 MG/24 HOUR PATCH TD SCH (08:40)
[2017-04-30] MEDS: FUROSEMIDE 20 MG TABLET PO SCH (08:41)
[2017-04-30] MEDS: CHOLECALCIFEROL (VIT D3) 1,000 UNITS TABLET PO SCH (08:41)
[2017-04-30] MEDS: LISINOPRIL 10 MG TABLET PO SCH (08:41)
[2017-04-30] MEDS: DOCUSATE SODIUM 250 MG CAPSULE PO SCH ×2 (08:41→17:10)
[2017-04-30] MEDS: ASPIRIN 81 MG CHEWABLE TABLET PO SCH (08:41)
[2017-04-30] MEDS: SERTRALINE HCL 100 MG TABLET PO SCH (08:41)
[2017-04-30 11:16] LABS: GLUCOSE,POINT OF CARE 100 MG/DL (70-110)
[2017-04-30 16:21] VITALS: BP 147/83
[2017-04-30 17:12] LABS: GLUCOSE,POINT OF CARE 134 MG/DL (70-110)
[2017-04-30 21:21] LABS: GLUCOSE,POINT OF CARE 103 MG/DL (70-110)
[2017-05-01 01:25] VITALS: BP 144/112
[2017-05-01] MEDS: CloNIDine HCL 0.1 MG TABLET PO PRN (01:27)
[2017-05-01 01:34] VITALS: BP 144/112
[2017-05-01 02:30] VITALS: BP 135/89
[2017-05-01] MEDS: DIAZEPAM 5 MG TABLET PO PRN ×2 (06:43→16:58)
[2017-05-01] MEDS: MetFORMIN HCL 500 MG TABLET PO SCH ×2 (06:43→16:58)
[2017-05-01 06:51] LABS: GLUCOSE,POINT OF CARE 90 MG/DL (70-110)
[2017-05-01 08:35] VITALS: BP 125/65
[2017-05-01] MEDS: NICOTINE 21 MG/24 HOUR PATCH TD SCH (08:44)
[2017-05-01] MEDS: FUROSEMIDE 20 MG TABLET PO SCH (08:45)
[2017-05-01] MEDS: LISINOPRIL 10 MG TABLET PO SCH (08:45)
[2017-05-01] MEDS: CHOLECALCIFEROL (VIT D3) 1,000 UNITS TABLET PO SCH (08:45)
[2017-05-01] MEDS: GABAPENTIN 300 MG CAPSULE PO SCH ×3 (08:45→16:58)
[2017-05-01] MEDS: ASPIRIN 81 MG CHEWABLE TABLET PO SCH (08:45)
[2017-05-01] MEDS: SERTRALINE HCL 100 MG TABLET PO SCH (08:45)
[2017-05-01] MEDS: DOCUSATE SODIUM 250 MG CAPSULE PO SCH ×2 (08:45→16:58)
[2017-05-01 11:03] LABS: GLUCOSE,POINT OF CARE 83 MG/DL (70-110)
[2017-05-01 16:36] VITALS: BP 135/87
[2017-05-01 16:57] LABS: GLUCOSE,POINT OF CARE 150 MG/DL (70-110)
[2017-05-01 20:52] LABS: GLUCOSE,POINT OF CARE 106 MG/DL (70-110)
[2017-05-02 01:35] VITALS: BP 145/90
[2017-05-02 06:17] LABS: GLUCOSE,POINT OF CARE 88 MG/DL (70-110)
[2017-05-02] MEDS: MetFORMIN HCL 500 MG TABLET PO SCH ×2 (06:27→17:07)
[2017-05-02] MEDS: DIAZEPAM 5 MG TABLET PO PRN ×2 (06:51→14:52)
[2017-05-02 06:53] VITALS: BP 166/98
[2017-05-02] MEDS: NICOTINE 21 MG/24 HOUR PATCH TD SCH (08:14)
[2017-05-02] MEDS: GABAPENTIN 300 MG CAPSULE PO SCH ×3 (08:14→17:07)
[2017-05-02] MEDS: CHOLECALCIFEROL (VIT D3) 1,000 UNITS TABLET PO SCH (08:15)
[2017-05-02] MEDS: DOCUSATE SODIUM 250 MG CAPSULE PO SCH ×2 (08:15→17:07)
[2017-05-02] MEDS: FUROSEMIDE 20 MG TABLET PO SCH (08:15)
[2017-05-02] MEDS: ASPIRIN 81 MG CHEWABLE TABLET PO SCH (08:15)
[2017-05-02] MEDS: LISINOPRIL 10 MG TABLET PO SCH (08:15)
[2017-05-02] MEDS: SERTRALINE HCL 100 MG TABLET PO SCH (08:16)
[2017-05-02 09:16] VITALS: BP 121/68
[2017-05-02 11:27] LABS: GLUCOSE,POINT OF CARE 114 MG/DL (70-110)
[2017-05-02 16:16] VITALS: BP 127/75
[2017-05-02 16:47] LABS: GLUCOSE,POINT OF CARE 103 MG/DL (70-110)
[2017-05-02 20:22] LABS: GLUCOSE,POINT OF CARE 137 MG/DL (70-110)
[2017-05-03 01:39] VITALS: BP 140/91
[2017-05-03] MEDS: DIAZEPAM 5 MG TABLET PO PRN ×3 (01:39→21:00)
[2017-05-03] MEDS: MetFORMIN HCL 500 MG TABLET PO SCH ×2 (07:08→16:57)
[2017-05-03 08:46] VITALS: BP 162/95
[2017-05-03] MEDS: ASPIRIN 81 MG CHEWABLE TABLET PO SCH (09:17)
[2017-05-03] MEDS: DOCUSATE SODIUM 250 MG CAPSULE PO SCH ×2 (09:18→16:57)
[2017-05-03] MEDS: FUROSEMIDE 20 MG TABLET PO SCH (09:18)
[2017-05-03] MEDS: GABAPENTIN 300 MG CAPSULE PO SCH ×3 (09:18→16:57)
[2017-05-03] MEDS: SERTRALINE HCL 100 MG TABLET PO SCH (09:19)
[2017-05-03] MEDS: LISINOPRIL 10 MG TABLET PO SCH (09:19)
[2017-05-03] MEDS: CHOLECALCIFEROL (VIT D3) 1,000 UNITS TABLET PO SCH (09:19)
[2017-05-03] MEDS: NICOTINE 21 MG/24 HOUR PATCH TD SCH (09:20)
[2017-05-03 16:00] VITALS: BP 126/80
[2017-05-03 17:02] LABS: GLUCOSE,POINT OF CARE 82 MG/DL (70-110)
[2017-05-03 17:02] LABS: GLUCOSE,POINT OF CARE 121 MG/DL (70-110)
[2017-05-03 21:07] LABS: GLUCOSE,POINT OF CARE 123 MG/DL (70-110)
[2017-05-04 01:38] VITALS: BP 142/94
[2017-05-04 06:17] LABS: GLUCOSE,POINT OF CARE 79 MG/DL (70-110)
[2017-05-04] MEDS: DIAZEPAM 5 MG TABLET PO PRN ×3 (06:43→22:38)
[2017-05-04] MEDS: MetFORMIN HCL 500 MG TABLET PO SCH ×2 (06:45→16:15)
[2017-05-04 08:30] VITALS: BP 151/98
[2017-05-04] MEDS: CHOLECALCIFEROL (VIT D3) 1,000 UNITS TABLET PO SCH (09:00)
[2017-05-04] MEDS: GABAPENTIN 300 MG CAPSULE PO SCH ×3 (09:00→16:15)
[2017-05-04] MEDS: LISINOPRIL 10 MG TABLET PO SCH (09:00)
[2017-05-04] MEDS: ASPIRIN 81 MG CHEWABLE TABLET PO SCH (09:00)
[2017-05-04] MEDS: NICOTINE 21 MG/24 HOUR PATCH TD SCH (09:00)
[2017-05-04] MEDS: FUROSEMIDE 20 MG TABLET PO SCH (09:00)
[2017-05-04] MEDS: SERTRALINE HCL 100 MG TABLET PO SCH (09:00)
[2017-05-04] MEDS: DOCUSATE SODIUM 250 MG CAPSULE PO SCH ×2 (09:00→16:15)
[2017-05-04 11:12] LABS: GLUCOSE,POINT OF CARE 84 MG/DL (70-110)
[2017-05-04 16:15] VITALS: BP 138/79
[2017-05-04 16:51] LABS: GLUCOSE,POINT OF CARE 125 MG/DL (70-110)
[2017-05-04] MEDS: IBUPROFEN 600 MG TABLET PO PRN (18:03)
[2017-05-04 19:26] LABS: GLUCOSE,POINT OF CARE 95 MG/DL (70-110)
[2017-05-04] MEDS: ZOLPIDEM TARTRATE 10 MG TABLET PO PRN (20:14)
[2017-05-05 06:07] LABS: GLUCOSE,POINT OF CARE 114 MG/DL (70-110)
[2017-05-05 06:13] VITALS: BP 151/100
[2017-05-05] MEDS: DIAZEPAM 5 MG TABLET PO PRN ×2 (06:40→16:43)
[2017-05-05] MEDS: MetFORMIN HCL 500 MG TABLET PO SCH ×2 (06:42→16:43)
[2017-05-05 08:40] VITALS: BP 127/68
[2017-05-05] MEDS: NICOTINE 21 MG/24 HOUR PATCH TD SCH (08:55)
[2017-05-05] MEDS: DOCUSATE SODIUM 250 MG CAPSULE PO SCH ×2 (08:56→16:43)
[2017-05-05] MEDS: FUROSEMIDE 20 MG TABLET PO SCH (08:56)
[2017-05-05] MEDS: CHOLECALCIFEROL (VIT D3) 1,000 UNITS TABLET PO SCH (08:56)
[2017-05-05] MEDS: LISINOPRIL 10 MG TABLET PO SCH (08:56)
[2017-05-05] MEDS: GABAPENTIN 300 MG CAPSULE PO SCH ×3 (08:56→16:43)
[2017-05-05] MEDS: ASPIRIN 81 MG CHEWABLE TABLET PO SCH (08:56)
[2017-05-05] MEDS: SERTRALINE HCL 100 MG TABLET PO SCH (08:56)
[2017-05-05 12:03] LABS: GLUCOSE,POINT OF CARE 120 MG/DL (70-110)
[2017-05-05 16:02] VITALS: BP 153/83
[2017-05-05 16:32] LABS: GLUCOSE,POINT OF CARE 135 MG/DL (70-110)
[2017-05-05 20:52] LABS: GLUCOSE,POINT OF CARE 150 MG/DL (70-110)
[2017-05-05] MEDS: ZOLPIDEM TARTRATE 10 MG TABLET PO PRN (21:08)
[2017-05-06 00:37] VITALS: BP 140/90
[2017-05-06] MEDS: DIAZEPAM 5 MG TABLET PO PRN ×3 (01:36→21:19)
[2017-05-06 06:17] LABS: GLUCOSE,POINT OF CARE 106 MG/DL (70-110)
[2017-05-06] MEDS: MetFORMIN HCL 500 MG TABLET PO SCH ×2 (06:49→16:40)
[2017-05-06] MEDS: DOCUSATE SODIUM 250 MG CAPSULE PO SCH ×2 (08:32→16:40)
[2017-05-06] MEDS: SERTRALINE HCL 100 MG TABLET PO SCH (08:32)
[2017-05-06] MEDS: GABAPENTIN 300 MG CAPSULE PO SCH ×3 (08:32→16:41)
[2017-05-06] MEDS: CHOLECALCIFEROL (VIT D3) 1,000 UNITS TABLET PO SCH (08:32)
[2017-05-06] MEDS: ASPIRIN 81 MG CHEWABLE TABLET PO SCH (08:32)
[2017-05-06] MEDS: LISINOPRIL 10 MG TABLET PO SCH (08:32)
[2017-05-06] MEDS: NICOTINE 21 MG/24 HOUR PATCH TD SCH (08:33)
[2017-05-06] MEDS: FUROSEMIDE 20 MG TABLET PO SCH (08:33)
[2017-05-06 08:53] VITALS: BP 128/69
[2017-05-06 11:17] LABS: GLUCOSE,POINT OF CARE 104 MG/DL (70-110)
[2017-05-06 16:14] VITALS: BP 128/67
[2017-05-06 21:27] LABS: GLUCOSE COMMENT 1 Received Meds; GLUCOSE,POINT OF CARE 118 MG/DL (70-110)
[2017-05-06 21:27] LABS: GLUCOSE COMMENT 1 Received Meds; GLUCOSE,POINT OF CARE 103 MG/DL (70-110)
[2017-05-06] MEDS ORDERED: HYDROCORTISONE 0.5% 30 GM CREAM TP PRN (22:00)
[2017-05-07] MEDS: DIAZEPAM 5 MG TABLET PO PRN ×3 (06:01→22:43)
[2017-05-07] MEDS: MetFORMIN HCL 500 MG TABLET PO SCH ×2 (06:40→16:46)
[2017-05-07 06:42] LABS: GLUCOSE,POINT OF CARE 91 MG/DL (70-110)
[2017-05-07 06:52] VITALS: BP 138/89
[2017-05-07 08:03] VITALS: BP 138/84
[2017-05-07] MEDS: NICOTINE 21 MG/24 HOUR PATCH TD SCH (09:06)
[2017-05-07] MEDS: DOCUSATE SODIUM 250 MG CAPSULE PO SCH ×2 (09:06→16:12)
[2017-05-07] MEDS: CHOLECALCIFEROL (VIT D3) 1,000 UNITS TABLET PO SCH (09:07)
[2017-05-07] MEDS: SERTRALINE HCL 100 MG TABLET PO SCH (09:07)
[2017-05-07] MEDS: LISINOPRIL 10 MG TABLET PO SCH (09:07)
[2017-05-07] MEDS: ASPIRIN 81 MG CHEWABLE TABLET PO SCH (09:07)
[2017-05-07] MEDS: GABAPENTIN 300 MG CAPSULE PO SCH ×3 (09:07→16:12)
[2017-05-07] MEDS: FUROSEMIDE 20 MG TABLET PO SCH (09:07)
[2017-05-07 12:47] LABS: GLUCOSE,POINT OF CARE 113 MG/DL (70-110)
[2017-05-07 16:16] VITALS: BP 146/82
[2017-05-07 17:37] LABS: GLUCOSE,POINT OF CARE 118 MG/DL (70-110)
[2017-05-07] MEDS: ZOLPIDEM TARTRATE 10 MG TABLET PO PRN (21:43)
[2017-05-07 21:57] LABS: GLUCOSE,POINT OF CARE 121 MG/DL (70-110)
[2017-05-08 00:11] VITALS: BP 145/88
[2017-05-08 06:13] LABS: GLUCOSE,POINT OF CARE 97 MG/DL (70-110)
[2017-05-08] MEDS: MetFORMIN HCL 500 MG TABLET PO SCH ×2 (06:50→16:59)
[2017-05-08] MEDS: NICOTINE 21 MG/24 HOUR PATCH TD SCH (08:16)
[2017-05-08] MEDS: DOCUSATE SODIUM 250 MG CAPSULE PO SCH ×2 (08:16→16:59)
[2017-05-08] MEDS: ASPIRIN 81 MG CHEWABLE TABLET PO SCH (08:16)
[2017-05-08] MEDS: LISINOPRIL 10 MG TABLET PO SCH (08:17)
[2017-05-08] MEDS: FUROSEMIDE 20 MG TABLET PO SCH (08:17)
[2017-05-08] MEDS: SERTRALINE HCL 100 MG TABLET PO SCH (08:17)
[2017-05-08] MEDS: GABAPENTIN 300 MG CAPSULE PO SCH ×3 (08:17→16:59)
[2017-05-08] MEDS: CHOLECALCIFEROL (VIT D3) 1,000 UNITS TABLET PO SCH (08:17)
[2017-05-08] MEDS: DIAZEPAM 5 MG TABLET PO PRN ×2 (08:17→17:41)
[2017-05-08 09:25] VITALS: BP 155/89
[2017-05-08 13:41] LABS: GLUCOSE,POINT OF CARE 102 MG/DL (70-110)
[2017-05-08 16:41] VITALS: BP 135/83
[2017-05-08 17:28] LABS: GLUCOSE,POINT OF CARE 129 MG/DL (70-110)
[2017-05-08 21:32] LABS: GLUCOSE,POINT OF CARE 110 MG/DL (70-110)
[2017-05-09 03:59] VITALS: BP 150/69
[2017-05-09] MEDS: DIAZEPAM 5 MG TABLET PO PRN ×3 (04:01→21:32)
[2017-05-09 06:22] LABS: GLUCOSE,POINT OF CARE 79 MG/DL (70-110)
[2017-05-09] MEDS: MetFORMIN HCL 500 MG TABLET PO SCH ×2 (06:42→16:59)
[2017-05-09] MEDS: NICOTINE 21 MG/24 HOUR PATCH TD SCH (08:43)
[2017-05-09] MEDS: LISINOPRIL 10 MG TABLET PO SCH (08:44)
[2017-05-09] MEDS: ASPIRIN 81 MG CHEWABLE TABLET PO SCH (08:44)
[2017-05-09] MEDS: CHOLECALCIFEROL (VIT D3) 1,000 UNITS TABLET PO SCH (08:44)
[2017-05-09] MEDS: SERTRALINE HCL 100 MG TABLET PO SCH (08:44)
[2017-05-09] MEDS: DOCUSATE SODIUM 250 MG CAPSULE PO SCH ×2 (08:44→16:59)
[2017-05-09] MEDS: FUROSEMIDE 20 MG TABLET PO SCH (08:44)
[2017-05-09] MEDS: GABAPENTIN 300 MG CAPSULE PO SCH ×3 (08:44→16:59)
[2017-05-09 09:57] VITALS: BP 131/72
[2017-05-09 16:22] LABS: GLUCOSE,POINT OF CARE 132 MG/DL (70-110)
[2017-05-09 16:22] LABS: GLUCOSE,POINT OF CARE 104 MG/DL (70-110)
[2017-05-09 16:37] VITALS: BP 137/82
[2017-05-09 20:02] LABS: GLUCOSE,POINT OF CARE 124 MG/DL (70-110)
[2017-05-10 05:20] VITALS: BP 157/108
[2017-05-10] MEDS: DIAZEPAM 5 MG TABLET PO PRN ×2 (05:21→11:02)
[2017-05-10 05:42] VITALS: BP 157/108
[2017-05-10 06:02] LABS: GLUCOSE,POINT OF CARE 80 MG/DL (70-110)
[2017-05-10 06:10] VITALS: BP 142/99
[2017-05-10] MEDS: MetFORMIN HCL 500 MG TABLET PO SCH ×2 (06:40→16:47)
[2017-05-10 08:11] VITALS: BP 136/89
[2017-05-10] MEDS: NICOTINE 21 MG/24 HOUR PATCH TD SCH (08:50)
[2017-05-10] MEDS: ASPIRIN 81 MG CHEWABLE TABLET PO SCH (08:50)
[2017-05-10] MEDS: GABAPENTIN 300 MG CAPSULE PO SCH ×3 (08:50→16:47)
[2017-05-10] MEDS: SERTRALINE HCL 100 MG TABLET PO SCH (08:50)
[2017-05-10] MEDS: LISINOPRIL 10 MG TABLET PO SCH (08:50)
[2017-05-10] MEDS: FUROSEMIDE 20 MG TABLET PO SCH (08:50)
[2017-05-10] MEDS: CHOLECALCIFEROL (VIT D3) 1,000 UNITS TABLET PO SCH (08:50)
[2017-05-10] MEDS: DOCUSATE SODIUM 250 MG CAPSULE PO SCH ×2 (08:50→16:48)
[2017-05-10 11:23] LABS: GLUCOSE,POINT OF CARE 78 MG/DL (70-110)
[2017-05-10 16:16] VITALS: BP 140/95
[2017-05-10 17:02] LABS: GLUCOSE,POINT OF CARE 135 MG/DL (70-110)
[2017-05-10] MEDS: DIAZEPAM 5 MG TABLET PO SCH (20:18)
[2017-05-10 20:37] LABS: GLUCOSE,POINT OF CARE 106 MG/DL (70-110)
[2017-05-10 20:48] VITALS: BP 122/74
[2017-05-11 05:38] VITALS: BP 142/95
[2017-05-11 05:52] LABS: GLUCOSE,POINT OF CARE 84 MG/DL (70-110)
[2017-05-11] MEDS: MetFORMIN HCL 500 MG TABLET PO SCH ×2 (06:44→17:35)
[2017-05-11] MEDS: NICOTINE 21 MG/24 HOUR PATCH TD SCH (08:35)
[2017-05-11] MEDS: DOCUSATE SODIUM 250 MG CAPSULE PO SCH ×2 (08:36→17:35)
[2017-05-11] MEDS: GABAPENTIN 400 MG CAPSULE PO SCH ×3 (08:36→17:35)
[2017-05-11] MEDS: SERTRALINE HCL 100 MG TABLET PO SCH (08:36)
[2017-05-11] MEDS: DIAZEPAM 5 MG TABLET PO SCH (08:36)
[2017-05-11] MEDS: FUROSEMIDE 20 MG TABLET PO SCH (08:36)
[2017-05-11] MEDS: CHOLECALCIFEROL (VIT D3) 1,000 UNITS TABLET PO SCH (08:36)
[2017-05-11] MEDS: ASPIRIN 81 MG CHEWABLE TABLET PO SCH (08:37)
[2017-05-11] MEDS: LISINOPRIL 10 MG TABLET PO SCH (08:37)
[2017-05-11 09:41] VITALS: BP 128/79
[2017-05-11 10:28] VITALS: BP 125/74
[2017-05-11] MEDS: IBUPROFEN 600 MG TABLET PO PRN (10:29)
[2017-05-11 11:12] LABS: GLUCOSE,POINT OF CARE 82 MG/DL (70-110)
[2017-05-11 11:28] VITALS: BP 128/70
[2017-05-11 16:16] VITALS: BP 141/90
[2017-05-11 17:07] LABS: GLUCOSE,POINT OF CARE 109 MG/DL (70-110)
[2017-05-11] MEDS ORDERED: DIAZEPAM 5 MG TABLET PO ONE (21:00)
[2017-05-11 21:12] LABS: GLUCOSE,POINT OF CARE 104 MG/DL (70-110)
[2017-05-12 00:56] VITALS: BP 143/91
[2017-05-12] MEDS: ZOLPIDEM TARTRATE 10 MG TABLET PO PRN (00:59)
[2017-05-12 06:07] LABS: GLUCOSE,POINT OF CARE 84 MG/DL (70-110)
[2017-05-12] MEDS: MetFORMIN HCL 500 MG TABLET PO SCH ×2 (07:00→16:46)
[2017-05-12 08:35] VITALS: BP 152/94
[2017-05-12] MEDS: DOCUSATE SODIUM 250 MG CAPSULE PO SCH ×2 (08:48→16:46)
[2017-05-12] MEDS: GABAPENTIN 400 MG CAPSULE PO SCH ×3 (08:48→16:46)
[2017-05-12] MEDS: SERTRALINE HCL 100 MG TABLET PO SCH (08:48)
[2017-05-12] MEDS: NICOTINE 21 MG/24 HOUR PATCH TD SCH (08:48)
[2017-05-12] MEDS: CHOLECALCIFEROL (VIT D3) 1,000 UNITS TABLET PO SCH (08:48)
[2017-05-12] MEDS: ASPIRIN 81 MG CHEWABLE TABLET PO SCH (08:49)
[2017-05-12] MEDS: FUROSEMIDE 20 MG TABLET PO SCH (08:49)
[2017-05-12] MEDS: LISINOPRIL 10 MG TABLET PO SCH (08:49)
[2017-05-12] MEDS ORDERED: DIAZEPAM 5 MG TABLET PO ONE (09:00)
[2017-05-12 10:30] VITALS: BP 139/87
[2017-05-12 11:07] LABS: GLUCOSE,POINT OF CARE 97 MG/DL (70-110)
[2017-05-12] MEDS ORDERED: DiphenhydrAMINE HCL 50 MG/ML VIAL ONE (12:20)
[2017-05-12] MEDS ORDERED: DiphenhydrAMINE HCL 50 MG/ML VIAL IM ONE ×2 (12:30→18:15)
[2017-05-12 16:39] VITALS: BP 136/79
[2017-05-13 06:03] VITALS: BP 141/98
[2017-05-13] MEDS: MetFORMIN HCL 500 MG TABLET PO SCH ×2 (06:36→16:57)
[2017-05-13] MEDS ORDERED: DiphenhydrAMINE HCL 50 MG/ML VIAL IM ONE (07:00)
[2017-05-13] MEDS: ASPIRIN 81 MG CHEWABLE TABLET PO SCH (09:19)
[2017-05-13] MEDS: NICOTINE 21 MG/24 HOUR PATCH TD SCH (09:19)
[2017-05-13] MEDS: GABAPENTIN 400 MG CAPSULE PO SCH ×3 (09:19→16:57)
[2017-05-13] MEDS: SERTRALINE HCL 100 MG TABLET PO SCH (09:19)
[2017-05-13] MEDS: DOCUSATE SODIUM 250 MG CAPSULE PO SCH ×2 (09:19→16:57)
[2017-05-13] MEDS: LISINOPRIL 10 MG TABLET PO SCH (09:19)
[2017-05-13] MEDS: CHOLECALCIFEROL (VIT D3) 1,000 UNITS TABLET PO SCH (09:19)
[2017-05-13] MEDS: FUROSEMIDE 20 MG TABLET PO SCH (09:19)
[2017-05-13 09:21] VITALS: BP 135/72
[2017-05-13 10:32] VITALS: BP 146/111
[2017-05-13] MEDS: CloNIDine HCL 0.1 MG TABLET PO PRN (10:34)
[2017-05-13 10:51] LABS: GLUCOSE,POINT OF CARE 95 MG/DL (70-110)
[2017-05-13 10:51] LABS: GLUCOSE,POINT OF CARE 116 MG/DL (70-110)
[2017-05-13 11:01] LABS: GLUCOSE,POINT OF CARE 87 MG/DL (70-110)
[2017-05-13] MEDS: IBUPROFEN 600 MG TABLET PO PRN (11:03)
[2017-05-13 11:18] LABS: GLUCOSE,POINT OF CARE 84 MG/DL (70-110)
[2017-05-13] MEDS ORDERED: NICO21T TD (12:32)
[2017-05-13 17:37] LABS: GLUCOSE,POINT OF CARE 148 MG/DL (70-110)
[2017-05-13] MEDS: ZOLPIDEM TARTRATE 10 MG TABLET PO PRN (20:37)
[2017-05-13 20:57] LABS: GLUCOSE,POINT OF CARE 128 MG/DL (70-110)
[2017-05-13 22:10] VITALS: BP 141/97
[2017-05-14 00:11] VITALS: BP 136/75
[2017-05-14 06:28] LABS: GLUCOSE,POINT OF CARE 126 MG/DL (70-110)
[2017-05-14] MEDS: MetFORMIN HCL 500 MG TABLET PO SCH (07:21)
[2017-05-14 08:43] VITALS: BP 146/84
[2017-05-14] MEDS: GABAPENTIN 400 MG CAPSULE PO SCH ×2 (08:55→12:48)
[2017-05-14] MEDS: NICOTINE 21 MG/24 HOUR PATCH TD SCH (08:55)
[2017-05-14] MEDS: LISINOPRIL 10 MG TABLET PO SCH (08:55)
[2017-05-14] MEDS: DOCUSATE SODIUM 250 MG CAPSULE PO SCH (08:55)
[2017-05-14] MEDS: SERTRALINE HCL 100 MG TABLET PO SCH (08:55)
[2017-05-14] MEDS: CHOLECALCIFEROL (VIT D3) 1,000 UNITS TABLET PO SCH (08:55)
[2017-05-14] MEDS: ASPIRIN 81 MG CHEWABLE TABLET PO SCH (08:56)
[2017-05-14] MEDS: FUROSEMIDE 20 MG TABLET PO SCH (08:56)
[2017-05-14 11:07] LABS: GLUCOSE,POINT OF CARE 75 MG/DL (70-110)
== END 2017-05-14 18:27 | disposition home or self-care (01) | DRG 751 ==
LOC: B2S 06:08 → EDSTATUS 06:10
DX: F33.2 Major depressive disorder, recurrent severe without psychotic features (principal); E11.40 Type 2 diabetes mellitus with diabetic neuropathy, unspecified; R45.851 Suicidal ideations; I50.9 Heart failure, unspecified; I10 Essential (primary) hypertension; F15.90 Other stimulant use, unspecified, uncomplicated; E66.01 Morbid (severe) obesity due to excess calories; K21.9 Gastro-esophageal reflux disease without esophagitis; J44.9 Chronic obstructive pulmonary disease, unspecified; M19.90 Unspecified osteoarthritis, unspecified site; K59.00 Constipation, unspecified; Z72.0 Tobacco use; G47.00 Insomnia, unspecified; E83.51 Hypocalcemia; T78.1XXA Other adverse food reactions, not elsewhere classified, initial encounter; L27.2 Dermatitis due to ingested food; X58.XXXA Exposure to other specified factors, initial encounter; F10.20 Alcohol dependence, uncomplicated
CPT/HCPCS: 82306; 82962; 83036; 84132; 84439; 84443; 87081; J1200

== ENCOUNTER 2017-05-13 11:55 | Emergency (ER) | payer MEDICAID ==
[~2017-05-13] VITALS: Ht 188 cm; Wt 136.4 kg
[2017-05-13 12:17] LABS: GLUCOSE,POINT OF CARE 91 MG/DL (70-110)
[2017-05-13] MEDS ORDERED: NICO21T TD (12:32)
[2017-05-13 12:52] LABS: BASOPHILS % (AUTO) 0.5 % (0.0-2.0); EOSINOPHILS % (AUTO) 2.7 % (1.0-6.0); HEMOGLOBIN 14.7 g/dL (13.5-17.5); LYMPHOCYTES # (AUTO) 1.3 K/uL (1.0-4.8); LYMPHOCYTES % (AUTO) 22.9 % (22.0-44.0); MEAN CORPUSCULAR HEMOGLOBIN 29.2 pg (26.0-34.0); MEAN CORPUSCULAR HGB CONC 33.3 G/dL (31.0-37.0); MEAN CORPUSCULAR VOLUME 87 fL (80-100); MONOCYTES # (AUTO) 0.4 K/uL (0.1-1.0); MONOCYTES % (AUTO) 7.8 % (2.0-9.0); NEUTROPHILS # (AUTO) 3.7 K/uL (1.8-7.7); NEUTROPHILS % (AUTO) 66.1 % (40.0-70.0); PLATELET COUNT (AUTO) 196 K/uL (150-450); RED BLOOD CELL COUNT(AUTO) 5.03 MIL/uL (4.50-5.90); RED CELL DISTRIBUTION WIDTH 14.2 % (11.5-14.5); WHITE BLOOD COUNT (AUTO) 5.6 K/uL (4.5-11.0)
[2017-05-13 13:00] LABS: ANION GAP 5 mmol/L (8-16); CALCIUM, TOTAL 8.6 mg/dL (8.8-10.5); CARBON DIOXIDE 32 mmol/L (22-29); CHLORIDE 103 mmol/L (98-107); GLOMERULAR FILTR. RATE CALC > 60 mL/min (>60); POTASSIUM 4.2 mmol/L (3.5-5.1); SODIUM SERUM 140 mmol/L (136-145); UREA NITROGEN, BLOOD 20 mg/dL (7-18)
[2017-05-13 13:08] LABS: B-TYPE NATRIURETIC PEPTIDE 14 pg/mL (0-100)
[2017-05-13 13:26] LABS: ALANINE AMINOTRANSFERASE 32 U/L (12-78); ALBUMIN 3.1 g/dL (3.4-5.0); ASPARTATE AMINOTRANSFERASE 20 U/L (15-37); BILIRUBIN,TOTAL 0.3 mg/dL (0.1-1.0); CREATINE KINASE MB 3.3 ng/mL (0-5); CREATINE KINASE, TOTAL 225 U/L (39-308); TOTAL PROTEIN, SERUM 6.3 g/dL (6.4-8.2)
[2017-05-13 14:15] LABS: APPEARANCE,URINE CLEAR (CLEAR); GLUCOSE, URINE (UA) NEGATIVE (NEGATIVE); KETONES,URINE NEGATIVE (NEGATIVE); LEUKOCYTE ESTERASE ,URINE NEGATIVE (NEGATIVE); OCCULT BLOOD,URINE NEGATIVE (NEGATIVE); PROTEIN,URINE NEGATIVE (NEGATIVE)
[2017-05-13 14:16] LABS: ADD UA MICROSCOPIC NO
[2017-05-13 15:21] VITALS: BP 140/99
== END 2017-05-13 15:24 | disposition home or self-care (01) ==
LOC: EMS 12:00 → EEVIPCON 12:00 → EMS 15:24
DX: R60.0 Localized edema (principal); F32.9 Major depressive disorder, single episode, unspecified; L29.9 Pruritus, unspecified; M79.89 Other specified soft tissue disorders; E78.00 Pure hypercholesterolemia, unspecified; I10 Essential (primary) hypertension; E03.9 Hypothyroidism, unspecified; E11.9 Type 2 diabetes mellitus without complications; F17.210 Nicotine dependence, cigarettes, uncomplicated; F14.90 Cocaine use, unspecified, uncomplicated; F19.90 Other psychoactive substance use, unspecified, uncomplicated; Z79.82 Long term (current) use of aspirin
CPT/HCPCS: 82962; 93005; 99285

== ENCOUNTER 2017-08-12 13:46 | Inpatient (IN) | payer MEDICAID ==
[~2017-08-12] VITALS: Ht 188 cm; Wt 139.7 kg
[~2017-08-12 13:46] MED LIST changes: +ALBU8HFA4 IH; -AMLO-511 PO; -DOCU250C91 PO; -FURO20 PO; +FURO40 PO; -GABA-531 PO; +GABA-533 PO; -METF500T4 PO; +NICO21T TD; +NYST15CR TP; +SERT100T12 PO; -SERT50TA12 PO; -VITAD1000 PO
[2017-08-12] MEDS ORDERED: HALOPERIDOL 5 MG TABLET PO PRN (21:30)
[2017-08-12 21:43] VITALS: BP 145/79
[2017-08-12 22:01] VITALS: BP 139/82
[2017-08-12 22:02] VITALS: BP 139/82
[2017-08-12] MEDS: LORazepam 2 MG TABLET PO PRN (22:03)
[2017-08-12 22:06] LABS: GLUCOSE,POINT OF CARE 105 MG/DL (70-110)
[2017-08-12] MEDS ORDERED: ALBUTEROL SULFATE HFA 90 MCG/PUFF 8 GM INHALER IH PRN (23:00)
[2017-08-13] VITALS: BP 145/90
[2017-08-13] MEDS: ZOLPIDEM TARTRATE 10 MG TABLET PO PRN ×2 (00:02→21:25)
[2017-08-13 04:00] VITALS: BP 164/110
[2017-08-13] MEDS: LORazepam 2 MG TABLET PO PRN ×2 (04:00→09:09)
[2017-08-13 06:32] LABS: GLUCOSE,POINT OF CARE 88 MG/DL (70-110)
[2017-08-13 06:46] VITALS: BP 143/84
[2017-08-13] MEDS ORDERED: PETROLATUM,WHITE 71 GM JELLY TP PRN (08:30)
[2017-08-13] MEDS ORDERED: BACITRACIN 28.4 GM OINTMENT TP PRN (08:30)
[2017-08-13] MEDS ORDERED: MAGNESIUM HYDROXIDE SUSPENSION 30 ML UDCUP PO PRN (08:30)
[2017-08-13] MEDS ORDERED: LOPERAMIDE HCL 2 MG CAPSULE PO PRN (08:30)
[2017-08-13] MEDS ORDERED: ONDANSETRON HCL 4 MG TABLET PO PRN (08:30)
[2017-08-13] MEDS ORDERED: MAG HYDROX/AL HYDROX/SIMETH ES 30 ML SUSPENSION UDCUP PO PRN (08:30)
[2017-08-13] MEDS ORDERED: ACETAMINOPHEN 325 MG TABLET PO PRN (08:30)
[2017-08-13] MEDS ORDERED: BENZOCAINE/MENTHOL LOZENGE MM PRN (08:30)
[2017-08-13] MEDS: LISINOPRIL 20 MG TABLET PO SCH (09:06)
[2017-08-13] MEDS: SERTRALINE HCL 100 MG TABLET PO SCH (09:06)
[2017-08-13] MEDS: GABAPENTIN 400 MG CAPSULE PO SCH ×3 (09:06→17:39)
[2017-08-13] MEDS: NICOTINE 21 MG/24 HOUR PATCH TD SCH (09:06)
[2017-08-13] MEDS: ASPIRIN 81 MG CHEWABLE TABLET PO SCH (09:06)
[2017-08-13 09:27] VITALS: BP 143/87
[2017-08-13 09:32] LABS: BASOPHILS % (AUTO) 1.4 % (0.0-2.0); EOSINOPHILS % (AUTO) 4.3 % (1.0-6.0); HEMATOCRIT 41.7 % (41-53); LYMPHOCYTES # (AUTO) 1.2 K/uL (1.0-4.8); LYMPHOCYTES % (AUTO) 27.4 % (22.0-44.0); MEAN CORPUSCULAR HEMOGLOBIN 29.8 pg (26.0-34.0); MEAN CORPUSCULAR HGB CONC 33.6 G/dL (31.0-37.0); MEAN CORPUSCULAR VOLUME 89 fL (80-100); MONOCYTES # (AUTO) 0.4 K/uL (0.1-1.0); MONOCYTES % (AUTO) 8.7 % (2.0-9.0); NEUTROPHILS # (AUTO) 2.6 K/uL (1.8-7.7); NEUTROPHILS % (AUTO) 58.2 % (40.0-70.0); PLATELET COUNT (AUTO) 218 K/uL (150-450); RED CELL DISTRIBUTION WIDTH 14.6 % (11.5-14.5); WHITE BLOOD COUNT (AUTO) 4.5 K/uL (4.5-11.0)
[2017-08-13 09:42] LABS: ALANINE AMINOTRANSFERASE 25 U/L (12-78); ALBUMIN 2.8 g/dL (3.4-5.0); ANION GAP 6 mmol/L (8-16); ASPARTATE AMINOTRANSFERASE 16 U/L (15-37); BILIRUBIN,TOTAL 0.2 mg/dL (0.1-1.0); CALCIUM, TOTAL 8.7 mg/dL (8.8-10.5); CARBON DIOXIDE 30 mmol/L (22-29); CHLORIDE 106 mmol/L (98-107); CHOL/HDL RATIO 2.8 (4.2-7.3); CREATININE 0.87 mg/dL (0.60-1.30); GLOMERULAR FILTR. RATE CALC > 60 mL/min (>60); POTASSIUM 3.9 mmol/L (3.5-5.1); SODIUM SERUM 142 mmol/L (136-145); THYROID STIMULATING HORMONE 1.71 uIU/mL (0.36-3.74); UREA NITROGEN, BLOOD 18 mg/dL (7-18)
[2017-08-13 09:54] LABS: HEMOGLOBIN A1C 6.1 % (4.5-6.2)
[2017-08-13] MEDS: DIAZEPAM 5 MG TABLET PO PRN ×3 (12:26→21:13)
[2017-08-13 16:39] VITALS: BP 129/84
[2017-08-14 00:35] VITALS: BP 154/99
[2017-08-14] MEDS: LISINOPRIL 20 MG TABLET PO SCH (08:10)
[2017-08-14] MEDS: SERTRALINE HCL 100 MG TABLET PO SCH (08:10)
[2017-08-14] MEDS: ASPIRIN 81 MG CHEWABLE TABLET PO SCH (08:10)
[2017-08-14] MEDS: NICOTINE 21 MG/24 HOUR PATCH TD SCH (08:10)
[2017-08-14] MEDS: DIAZEPAM 5 MG TABLET PO PRN ×3 (08:10→16:23)
[2017-08-14] MEDS: TraMADol HCL 50 MG TABLET PO PRN (08:10)
[2017-08-14] MEDS: GABAPENTIN 400 MG CAPSULE PO SCH ×3 (08:10→16:22)
[2017-08-14 09:14] VITALS: BP 142/95
[2017-08-14 16:41] VITALS: BP 139/87
[2017-08-14] MEDS: ZOLPIDEM TARTRATE 10 MG TABLET PO PRN (20:39)
[2017-08-15 03:56] VITALS: BP 140/100
[2017-08-15 05:03] LABS: GLUCOSE,POINT OF CARE 81 MG/DL (70-110)
[2017-08-15] MEDS: LISINOPRIL 20 MG TABLET PO SCH (09:16)
[2017-08-15] MEDS: NICOTINE 21 MG/24 HOUR PATCH TD SCH (09:16)
[2017-08-15] MEDS: SERTRALINE HCL 100 MG TABLET PO SCH (09:16)
[2017-08-15] MEDS: GABAPENTIN 400 MG CAPSULE PO SCH ×3 (09:16→16:58)
[2017-08-15] MEDS: ASPIRIN 81 MG CHEWABLE TABLET PO SCH (09:17)
[2017-08-15 09:57] VITALS: BP 136/79
[2017-08-15] MEDS: DIAZEPAM 5 MG TABLET PO PRN ×2 (10:03→19:40)
[2017-08-15] MEDS: TraMADol HCL 50 MG TABLET PO PRN (10:04)
[2017-08-15 16:37] VITALS: BP 145/87
[2017-08-15] MEDS: ZOLPIDEM TARTRATE 10 MG TABLET PO PRN (22:26)
[2017-08-16] VITALS (8 sets, daily range): BP systolic 132–173; BP diastolic 74–115
[2017-08-16] MEDS: DIAZEPAM 5 MG TABLET PO PRN ×3 (02:01→13:07)
[2017-08-16] MEDS: CloNIDine HCL 0.1 MG TABLET PO PRN (05:00)
[2017-08-16] MEDS: NICOTINE 21 MG/24 HOUR PATCH TD SCH (09:01)
[2017-08-16] MEDS: SERTRALINE HCL 100 MG TABLET PO SCH (09:01)
[2017-08-16] MEDS: LISINOPRIL 20 MG TABLET PO SCH (09:01)
[2017-08-16] MEDS: GABAPENTIN 400 MG CAPSULE PO SCH ×3 (09:01→16:19)
[2017-08-16] MEDS: ASPIRIN 81 MG CHEWABLE TABLET PO SCH (09:01)
[2017-08-16] MEDS: TraMADol HCL 50 MG TABLET PO PRN ×2 (09:07→18:14)
[2017-08-16] MEDS: IBUPROFEN 600 MG TABLET PO PRN (12:19)
[2017-08-17 01:51] VITALS: BP 143/91
[2017-08-17] MEDS: DIAZEPAM 5 MG TABLET PO PRN ×3 (01:57→19:56)
[2017-08-17] MEDS: ZOLPIDEM TARTRATE 10 MG TABLET PO PRN ×2 (01:57→20:44)
[2017-08-17 08:34] VITALS: BP 135/85
[2017-08-17] MEDS: NICOTINE 21 MG/24 HOUR PATCH TD SCH (09:33)
[2017-08-17] MEDS: GABAPENTIN 400 MG CAPSULE PO SCH ×3 (09:34→17:36)
[2017-08-17] MEDS: ASPIRIN 81 MG CHEWABLE TABLET PO SCH (09:34)
[2017-08-17] MEDS: LISINOPRIL 20 MG TABLET PO SCH (09:34)
[2017-08-17] MEDS: SERTRALINE HCL 100 MG TABLET PO SCH (09:35)
[2017-08-17 12:22] LABS: GLUCOSE COMMENT 1 Received Meds; GLUCOSE,POINT OF CARE 92 MG/DL (70-110)
[2017-08-17 16:53] VITALS: BP 150/90
[2017-08-17 18:30] VITALS: BP 136/74
[2017-08-18] VITALS (9 sets, daily range): BP systolic 106–171; BP diastolic 65–106
[2017-08-18] MEDS: CloNIDine HCL 0.1 MG TABLET PO PRN (01:22)
[2017-08-18] MEDS: DIAZEPAM 5 MG TABLET PO PRN ×3 (03:18→17:05)
[2017-08-18] MEDS: GABAPENTIN 400 MG CAPSULE PO SCH ×3 (10:06→17:05)
[2017-08-18] MEDS: SERTRALINE HCL 100 MG TABLET PO SCH (10:06)
[2017-08-18] MEDS: ASPIRIN 81 MG CHEWABLE TABLET PO SCH (10:06)
[2017-08-18] MEDS: NICOTINE 21 MG/24 HOUR PATCH TD SCH (10:09)
[2017-08-18] MEDS ORDERED: LISINOPRIL 20 MG TABLET PO ONE ×2 (10:15→11:30)
[2017-08-18] MEDS ORDERED: AmLODIPine BESYLATE 10 MG TABLET PO SCH (10:30)
[2017-08-18] MEDS: IBUPROFEN 600 MG TABLET PO PRN (20:28)
[2017-08-18 21:42] LABS: GLUCOSE,POINT OF CARE 101 MG/DL (70-110)
[2017-08-19] MEDS: DIAZEPAM 5 MG TABLET PO PRN (02:02)
[2017-08-19 05:15] VITALS: BP 154/96
[2017-08-19 08:57] VITALS: BP 138/88
[2017-08-19] MEDS ORDERED: AMLO-512 PO (08:58)
[2017-08-19] MEDS ORDERED: LISINOPRIL 20 MG TABLET PO SCH (09:00)
== END 2017-08-19 09:30 | disposition home or self-care (01) | DRG 751 ==
LOC: B2S 21:33
DX: F33.2 Major depressive disorder, recurrent severe without psychotic features (principal); R45.851 Suicidal ideations; E11.9 Type 2 diabetes mellitus without complications; G47.00 Insomnia, unspecified; I10 Essential (primary) hypertension; E66.9 Obesity, unspecified; F17.200 Nicotine dependence, unspecified, uncomplicated; I83.90 Asymptomatic varicose veins of unspecified lower extremity; J44.9 Chronic obstructive pulmonary disease, unspecified; M19.90 Unspecified osteoarthritis, unspecified site; Z59.0 Homelessness; Z79.82 Long term (current) use of aspirin; Z79.899 Other long term (current) drug therapy; Z82.49 Family history of ischemic heart disease and other diseases of the circulatory system; Z83.3 Family history of diabetes mellitus; Z91.5 Personal history of self-harm; Z71.6 Tobacco abuse counseling; Z56.0 Unemployment, unspecified; Z68.39 Body mass index [BMI] 39.0-39.9, adult; Z72.89 Other problems related to lifestyle; Z71.41 Alcohol abuse counseling and surveillance of alcoholic
CPT/HCPCS: 82962; 83036; 84439; 84443; 93925; 93970

== ENCOUNTER 2019-11-08 11:07 | Emergency (ER) | payer MEDICAID, OTHER ==
[~2019-11-08] VITALS: Ht 188 cm; Wt 118.2 kg
[~2019-11-08 11:07] MED LIST changes: -ALBU8HFA4 IH; +AMLO10TA7 PO; -FURO40 PO; -NICO21T TD; -NYST15CR TP
[2019-11-08] MEDS ORDERED: BENA20TA11 PO (11:21)
[2019-11-08] MEDS ORDERED: CLOT15CR71 TP (11:21)
[2019-11-08] MEDS ORDERED: BUSP10TA23 PO (11:21)
[2019-11-08] MEDS ORDERED: DOXY50CA2 PO (11:21)
[2019-11-08] MEDS ORDERED: BUME1TAB34 PO (11:21)
[2019-11-08] MEDS ORDERED: IPRAHFA IH (11:30)
[2019-11-08] MEDS ORDERED: ALBU8.5H8 IH (11:30)
[2019-11-08] MEDS ORDERED: FURO40 PO (11:30)
[2019-11-08] MEDS ORDERED: HYDR-4061 PO (11:30)
[2019-11-08] MEDS ORDERED: ATOR20TA86 PO (11:30)
[2019-11-08] MEDS ORDERED: SPIR25 PO (11:30)
[2019-11-08] MEDS ORDERED: BECL10.62 IH (11:30)
[2019-11-08] MEDS ORDERED: BECL10.6 IH (11:30)
[2019-11-08] MEDS ORDERED: AZIT250T9 PO (11:30)
[2019-11-08] MEDS ORDERED: ALBUTEROL SULFATE 2.5 MG/0.5 ML NEB SOLUTION NEB ONE (12:45)
[2019-11-08] MEDS ORDERED: IPRATROPIUM BROMIDE 0.5 MG/2.5 ML NEB SOLUTION NEB ONE ×2 (12:45→16:00)
[2019-11-08 15:03] LABS: BASOPHILS % (AUTO) 0.9 % (0.0-2.0); EOSINOPHILS % (AUTO) 2.2 % (1.0-6.0); HEMATOCRIT 43.7 % (41-53); HEMOGLOBIN 14.3 g/dL (13.5-17.5); LYMPHOCYTES # (AUTO) 1.6 K/uL (1.0-4.8); MEAN CORPUSCULAR HEMOGLOBIN 28.8 pg (26.0-34.0); MEAN CORPUSCULAR HGB CONC 32.7 G/dL (31.0-37.0); MEAN CORPUSCULAR VOLUME 88 fL (80-100); MONOCYTES # (AUTO) 0.5 K/uL (0.1-1.0); MONOCYTES % (AUTO) 7.1 % (2.0-9.0); NEUTROPHILS # (AUTO) 4.4 K/uL (1.8-7.7); NEUTROPHILS % (AUTO) 65.8 % (40.0-70.0); PLATELET COUNT (AUTO) 245 K/uL (150-450); RED BLOOD CELL COUNT(AUTO) 4.97 MIL/uL (4.50-5.90); RED CELL DISTRIBUTION WIDTH 14.1 % (11.5-14.5)
[2019-11-08 15:25] LABS: ALANINE AMINOTRANSFERASE 48 U/L (12-78); ALKALINE PHOSPHATASE 63 U/L (46-116); ANION GAP 3 mmol/L (8-16); ASPARTATE AMINOTRANSFERASE 26 U/L (15-37); BILIRUBIN,TOTAL 0.1 mg/dL (0.1-1.0); CALCIUM, TOTAL 8.5 mg/dL (8.8-10.5); CARBON DIOXIDE 32 mmol/L (22-29); CHLORIDE 106 mmol/L (98-107); CREATININE 1.23 mg/dL (0.60-1.30); GLOMERULAR FILTR. RATE CALC > 60 mL/min (>60); GLUCOSE,RANDOM 153 mg/dL (70-110); POTASSIUM 3.9 mmol/L (3.5-5.1); SODIUM SERUM 141 mmol/L (136-145); TOTAL PROTEIN, SERUM 6.5 g/dL (6.4-8.2)
[2019-11-08 15:36] LABS: UREA NITROGEN, BLOOD 30 mg/dL (7-18)
[2019-11-08 15:37] LABS: B-TYPE NATRIURETIC PEPTIDE 18 pg/mL (0-100)
[2019-11-08 15:56] LABS: INFLUENZA TYPE A NEGATIVE FOR TYPE A (NEGATIVE); INFLUENZA TYPE B NEGATIVE FOR TYPE B (NEGATIVE)
[2019-11-08 15:58] LABS: LACTIC ACID 1.9 mmol/L (0.4-2.0)
[2019-11-08] MEDS ORDERED: MethylPREDNISolone SOD SUCC 125 MG/2 ML VIAL IVP ONE (16:00)
[2019-11-08] MEDS ORDERED: ALBUTEROL SULFATE 5 MG/ML 20 ML NEB SOLN [BULK] NEB ONE (16:00)
[2019-11-08] MEDS ORDERED: 0.9% SODIUM CHLORIDE 15 ML NEB SOLUTION NEB ONE (16:36)
[2019-11-08] MEDS ORDERED: PredniSONE 20 MG TABLET PO ONE (17:00)
[2019-11-08 18:04] VITALS: BP 110/72
== END 2019-11-08 18:13 | disposition home or self-care (01) ==
LOC: EMS 11:08
DX: J44.1 Chronic obstructive pulmonary disease with (acute) exacerbation (principal); F32.9 Major depressive disorder, single episode, unspecified; E11.9 Type 2 diabetes mellitus without complications; E78.00 Pure hypercholesterolemia, unspecified; I11.0 Hypertensive heart disease with heart failure; I50.9 Heart failure, unspecified; E03.9 Hypothyroidism, unspecified; G43.909 Migraine, unspecified, not intractable, without status migrainosus; F17.210 Nicotine dependence, cigarettes, uncomplicated; F14.90 Cocaine use, unspecified, uncomplicated; F19.90 Other psychoactive substance use, unspecified, uncomplicated; Z79.82 Long term (current) use of aspirin; Z79.899 Other long term (current) drug therapy
CPT/HCPCS: 36415; 71045; 80053; 83605; 83880; 84484; 85025; 87804; 93005; 94640; 94644; 99285; J2930; J7512

== ENCOUNTER 2019-11-11 12:04 | Emergency (ER) | payer MEDICAID, OTHER ==
[~2019-11-11] VITALS: Ht 188 cm; Wt 159.1 kg
[~2019-11-11 12:04] MED LIST changes: +ALBU8.5H8 IH; -AMLO10TA7 PO; +ATOR20TA86 PO; +AZIT250T9 PO; +BECL10.6 IH; +BECL10.62 IH; +BENA20TA11 PO; +BUME1TAB34 PO; +BUSP10TA23 PO; +CLOT15CR71 TP; +DOXY50CA2 PO; +FURO40 PO; -GABA-533 PO; +HYDR-4061 PO; +IPRAHFA IH; -LISI-662 PO; -SERT100T12 PO; +SPIR25 PO
[2019-11-11 13:19] LABS: BASOPHILS % (AUTO) 0.8 % (0.0-2.0); EOSINOPHILS % (AUTO) 1.8 % (1.0-6.0); HEMATOCRIT 44.4 % (41-53); HEMOGLOBIN 14.6 g/dL (13.5-17.5); LYMPHOCYTES # (AUTO) 1.7 K/uL (1.0-4.8); LYMPHOCYTES % (AUTO) 24.1 % (22.0-44.0); MEAN CORPUSCULAR HEMOGLOBIN 28.8 pg (26.0-34.0); MEAN CORPUSCULAR HGB CONC 32.9 G/dL (31.0-37.0); MEAN CORPUSCULAR VOLUME 88 fL (80-100); MONOCYTES # (AUTO) 0.6 K/uL (0.1-1.0); MONOCYTES % (AUTO) 8.6 % (2.0-9.0); NEUTROPHILS # (AUTO) 4.7 K/uL (1.8-7.7); NEUTROPHILS % (AUTO) 64.7 % (40.0-70.0); PLATELET COUNT (AUTO) 246 K/uL (150-450); RED BLOOD CELL COUNT(AUTO) 5.06 MIL/uL (4.50-5.90); RED CELL DISTRIBUTION WIDTH 14.4 % (11.5-14.5)
[2019-11-11 13:28] LABS: ANION GAP 7 mmol/L (8-16); CALCIUM, TOTAL 8.8 mg/dL (8.8-10.5); CARBON DIOXIDE 29 mmol/L (22-29); CHLORIDE 106 mmol/L (98-107); CREATININE 0.88 mg/dL (0.60-1.30); GLOMERULAR FILTR. RATE CALC > 60 mL/min (>60); GLUCOSE,RANDOM 107 mg/dL (70-110); POTASSIUM 4.6 mmol/L (3.5-5.1); SODIUM SERUM 142 mmol/L (136-145); UREA NITROGEN, BLOOD 33 mg/dL (7-18)
[2019-11-11 13:54] LABS: ALANINE AMINOTRANSFERASE 50 U/L (12-78); ALBUMIN 3.1 g/dL (3.4-5.0); ALKALINE PHOSPHATASE 58 U/L (46-116); ASPARTATE AMINOTRANSFERASE 30 U/L (15-37); BILIRUBIN,TOTAL 0.2 mg/dL (0.1-1.0); CREATINE KINASE, TOTAL ONLY 308 U/L (39-308); TOTAL PROTEIN, SERUM 6.6 g/dL (6.4-8.2)
[2019-11-11 13:59] LABS: B-TYPE NATRIURETIC PEPTIDE 30 pg/mL (0-100)
[2019-11-11] MEDS ORDERED: IPRATROPIUM BROMIDE 0.5 MG/2.5 ML NEB SOLUTION NEB ONE (14:30)
[2019-11-11] MEDS ORDERED: ALBUTEROL SULFATE 5 MG/ML 20 ML NEB SOLN [BULK] NEB ONE (14:30)
[2019-11-11] MEDS ORDERED: MethylPREDNISolone SOD SUCC 125 MG/2 ML VIAL IVP ONE (14:30)
[2019-11-11] MEDS ORDERED: IOVERSOL 350 MG/ML 100 ML VIAL ONE (14:37)
[2019-11-11] MEDS ORDERED: SODIUM CHLORIDE 0.9% 100 ML ONE (14:37)
[2019-11-11 15:19] LABS: APPEARANCE,URINE CLEAR (CLEAR); BILIRUBIN,URINE NEGATIVE (NEGATIVE); GLUCOSE, URINE (UA) NEGATIVE (NEGATIVE); KETONES,URINE NEGATIVE (NEGATIVE); LEUKOCYTE ESTERASE ,URINE NEGATIVE (NEGATIVE); NITRATE,URINE NEGATIVE (NEGATIVE); OCCULT BLOOD,URINE NEGATIVE (NEGATIVE); PROTEIN,URINE NEGATIVE (NEGATIVE); UROBILINOGEN,URINE 0.2 mg/dL (<=1.0)
[2019-11-11 15:24] LABS: AMPHET/METH SCREEN,URINE NEGATIVE (NEGATIVE); BARBITURATE SCREEN, URINE NEGATIVE (NEGATIVE); BENZODIAZEPINES SCREEN,URINE NEGATIVE (NEGATIVE); CANNABINOID SCREEN,URINE NEGATIVE (NEGATIVE); COCAINE SCREEN,URINE NEGATIVE (NEGATIVE); METHADONE SCREEN, URINE NEGATIVE (NEGATIVE); OPIATE SCREEN,URINE NEGATIVE (NEGATIVE)
[2019-11-11 15:37] LABS: PHENCYCLIDINE SCREEN,URINE NEGATIVE (NEGATIVE)
[2019-11-11] MEDS ORDERED: LEVOFLOXACIN 250 MG TABLET PO ONE (16:45)
[2019-11-11] MEDS ORDERED: DOXY100C PO (16:47)
[2019-11-11 17:39] VITALS: BP 103/69
== END 2019-11-11 17:45 | disposition home or self-care (01) ==
LOC: EMS 12:05
DX: J44.1 Chronic obstructive pulmonary disease with (acute) exacerbation (principal); F14.90 Cocaine use, unspecified, uncomplicated; F19.90 Other psychoactive substance use, unspecified, uncomplicated; F32.9 Major depressive disorder, single episode, unspecified; E11.9 Type 2 diabetes mellitus without complications; I10 Essential (primary) hypertension; G43.909 Migraine, unspecified, not intractable, without status migrainosus; E03.9 Hypothyroidism, unspecified; E78.00 Pure hypercholesterolemia, unspecified; F17.210 Nicotine dependence, cigarettes, uncomplicated; Z79.899 Other long term (current) drug therapy; Z79.82 Long term (current) use of aspirin
CPT/HCPCS: 36415; 71045; 71275; 80053; 80307; 81003; 82550; 83880; 84484; 85025; 85379; 87040; 93005; 94640; 96374; 99285; J2930; J7050; Q9967; 94644